=== PATIENT | male | born 1960 ===

== ENCOUNTER 2017-07-22 14:17 | Emergency (ER) | payer MEDICARE ==
[2017-07-22 14:17] VITALS: BMI 28.7
[2017-07-22] MEDS ORDERED: Iohexol 240 (50 ml) PO STA (16:53)
[2017-07-22] MEDS ORDERED: Sodium Chloride 0.9% 1,000 ML IV STA (16:55)
[2017-07-22] MEDS ORDERED: DiphenhydrAMINE 50 mg/ml Inj IVP STA (16:55)
--- NOTE | 2017-07-22 17:02 | C.PDOC ---
History Of Present Illness 56 y/o male presents to emergency department with complaint of generalized itchiness and weakness for 2 days. Patient also reports some right knee swelling. Patient denies taking any new medications, new foods, or detergents. Denies fever, chills, nausea, vomiting, SOB, palpitations, chest pain, or other associated symptoms. Time Seen by Provider: 07/22/17 16:19 Chief Complaint (Nursing): Dizziness/Lightheaded History Per: Patient History/Exam Limitations: no limitations Onset/Duration Of Symptoms: Days Current Symptoms Are (Timing): Still Present Seizure Or Post-ictal Symptoms: None Possible Causative Factor(s): denies: New Medications Fall Associated With With Symptoms: No Recent travel outside of the [place]: No Past Medical History Reviewed: Historical Data, Nursing Documentation, Vital Signs Vital Signs: Last Vital Signs Temp 97.9 F 07/22/17 18:52 Pulse 70 07/22/17 18:52 Resp 20 07/22/17 18:52 BP 150/88 07/22/17 18:52 Pulse Ox 98 07/22/17 18:52 - Medical History PMH: Fractures (left 5th toe), HTN, Peripheral Edema - [facility] Procedures COLONOSCOPY (04/20/13) Family History: States: Unknown Family Hx - Social History Hx Tobacco Use: No Hx Alcohol Use: No Hx Substance Use: No - Immunization History Hx Tetanus Toxoid Vaccination: No Hx Influenza Vaccination: Yes Hx Pneumococcal Vaccination: Yes Review Of Systems Except As Marked, All Systems Reviewed And Found Negative. Constitutional: Positive for: Weakness. Negative for: Fever, Chills Cardiovascular: Negative for: Chest Pain, Palpitations Respiratory: Negative for: Cough Gastrointestinal: Negative for: Nausea, Vomiting Skin: Positive for: Rash Neurological: Negative for: Headache, Dizziness Physical Exam - Physical Exam Appears: Non-toxic, No Acute Distress Skin: Warm, Dry, No Rash, Other ( urticaria, some diffuse skin discoloration to torso - chronic in appearance) Head: Atraumatic, Normacephalic Eye(s): bilateral: Normal Inspection, PERRL, EOMI Oral Mucosa: Moist Neck: Normal ROM, Supple Chest: Symmetrical, No Tenderness Cardiovascular: Rhythm Regular, No Murmur Respiratory: Normal Breath Sounds, No Rales, No Rhonchi, No Wheezing Gastrointestinal/Abdominal: Soft, Tenderness (epigastric and left sided abdomen) , Guarding, No Rebound, Other (post-op scar to left flank) Back: Normal Inspection Extremity: Normal ROM, Capillary Refill (< 2 sec. ) Neurological/Psych: Oriented x3, Normal Speech, Normal Cognition ED Course And Treatment - Laboratory Results Result Diagrams: 07/22/17 17:08 07/22/17 17:08 O2 Sat by Pulse Oximetry: 98 (RA) Pulse Ox Interpretation: Normal - CT Scan/US CT ABDOMEN/PELVIS Other Rad Studies (CT/US): Read By Radiologist, Radiology Report Reviewed CT/US Interpretation: Accession No. : [id number]. Patient Name / ID : EMILY CORTEZ / [id number]. Exam Date : 07/22/2017 17:32:29 ( Approved ) . Study Comment : Sex / Age : M / 56Y. Creator : Oly Taylor MD. Dictator : Oly Taylor MD. Utility Worker [place] : Property Adjuster : Oly Taylor MD. Approver2 : Report Date : 07/22/2017 18:08:33. My Comment : . PROCEDURE: CT Abdomen and Pelvis without Oral or IV contrast. HISTORY: Pain. COMPARISON: None available. TECHNIQUE: Contiguous axial images of the abdomen and pelvis. No oral or IV contrast administered. Coronal and Sagittal reformats generated and reviewed. Radiation dose: Total exam DLP = 613.42 mGy- cm. This CT exam was performed using one or more of the following dose reduction techniques: Automated exposure control, adjustment of the mA and/or kV according to patient size, and/or use of iterative reconstruction technique. FINDINGS: There is limited evaluation of the solid organs without the administration of IV contrast. LOWER THORAX: No visible consolidation, pleural effusion, or pneumothorax. LIVER: Unremarkable unenhanced appearance. GALLBLADDER AND BILE DUCTS: Unremarkable unenhanced appearance. PANCREAS: Unremarkable unenhanced appearance. SPLEEN: Unremarkable unenhanced appearance. ADRENALS: Unremarkable unenhanced appearance. KIDNEYS AND URETERS : Mild bilateral renal atrophy. No hydronephrosis or obstructing renal calculus. BLADDER: The urinary bladder appears unremarkable. REPRODUCTIVE: Unremarkable. APPENDIX: The appendix appears within normal limits of caliber. No secondary signs of acute appendicitis. BOWEL: The stomach is nondistended. Lack of oral contrast limits evaluation for bowel pathology. The bowel loops appear within normal limits of caliber without evidence of intestinal obstruction. PERITONEUM: No significant free fluid. No definite free air. LYMPH NODES: No bulky lymphadenopathy identified. VASCULATURE: Large focal out pouching or aneurysm of the thoracic aorta near the diaphragmatic hiatus measures approximately 5.7 x 5.4 x 5.3 cm. BONES: Degenerative changes of the spine. OTHER FINDINGS: Small fat containing bilateral inguinal hernias. IMPRESSION: Large focal out pouching or aneurysm of the thoracic aorta near the diaphragmatic hiatus measures approximately 5.7 x 5.4 x 5.3 cm. No prior study available for comparison. Recommend further evaluation of the aorta without and with IV contrast if indicated. Progress Note: CT abdomen/pelvis, EKG, bloodwork, CxR, R knee x-rays ordered. Treated with Benadryl, Pepcid, Solu-Medrol, IVFs. CT abdomen with contrast ordered, but was changed to non contrast study secondary to allergic reaction patient is currently having. CT was reviewed, significant for "Large focal out pouching or aneurysm of the thoracic aorta near the diaphragmatic hiatus". Discussed findings with Dr. Garcia at 18:[address] Goodman ( [place]othoracic at [facility] [place] Dr. Goodman was paged. Discussed case with Dr. Avelar at 18:40, who requests transfer to [facility] [place]. Disposition - Disposition Disposition: Trans to Other Acute Care Hosp Disposition Time: 19:00 Condition: SERIOUS Forms: [facility] (Cuban) - Clinical Impression Clinical Impression: Allergic urticaria, AAA (abdominal aortic aneurysm) without rupture - PA / [employer] OFFICER / Resident Statement MD/DO has reviewed & agrees with the documentation as recorded. - Scribe Statement The provider has reviewed the documentation as recorded by the Anetaibmelinda Georges All medical record entries made by the Scribmelinda were at my direction and personally dictated by me. I have reviewed the chart and agree that the record accurately reflects my personal performance of the history, physical exam, medical decision making, and the department course for this patient. I have also personally directed, reviewed, and agree with the discharge instructions and disposition.
[2017-07-22] MEDS ORDERED: Iohexol 240 (50 ml) ONE (17:09)
[2017-07-22] MEDS ORDERED: DiphenhydrAMINE 50 mg/ml Inj ONE (17:09)
[2017-07-22] MEDS ORDERED: Sodium Chloride 0.9% 1,000 ML ONE (17:10)
[2017-07-22 17:27] LABS: INR 1.1
[2017-07-22 17:28] LABS: BASO % 0.5 % (0.0-2.0); EOS # 0.5 K/uL (0.0-0.7); EOS % 10.9 % (0.0-4.0); HEMATOCRIT 41.2 % (35.0-51.0); LYMPH # 0.7 K/uL (1.0-4.3); LYMPH % 16.3 % (20.0-40.0); MEAN CORPUSCULAR HEMOGLOBIN 31.6 pg (27.0-31.0); MEAN CORPUSCULAR HGB CONC 34.1 g/dL (33.0-37.0); MEAN PLATELET VOLUME 9.2 fL (7.2-11.7); MONO # 0.5 K/uL (0.0-0.8); NRBC % 0.7 % (0.0-2.0); RED CELL DISTRIBUTION WIDTH 14.2 % (11.5-14.5); WHITE BLOOD COUNT 4.6 K/uL (4.8-10.8)
[2017-07-22 17:30] LABS: MEAN CELL VOLUME 92.7 fL (80.0-94.0)
[2017-07-22 17:34] LABS: CHLORIDE 99 mmol/L (98-107); POTASSIUM 4.4 mmol/L (3.6-5.2); SODIUM 133 mmol/L (132-148)
[2017-07-22 17:36] LABS: AMYLASE 75 U/L (30-110); BILIRUBIN,TOTAL 1.1 mg/dL (0.2-1.3); CARBON DIOXIDE 23 mmol/L (22-30); GFR AFRICAN-AMERICAN 19
[2017-07-22 17:37] LABS: ALB/GLOB RATIO 1.2 (1.0-2.1); ALKALINE PHOSPHATASE 69 U/L (38-126); ALT/SGPT 30 U/L (21-72); AST/SGOT 40 U/L (17-59); BLOOD UREA NITROGEN 51 mg/dL (9-20); CALCIUM 8.7 mg/dl (8.6-10.4); GLUCOSE,RANDOM 78 mg/dL (75-110); TOTAL PROTEIN 7.4 g/dL (6.3-8.3)
--- NOTE | 2017-07-22 18:09 | CT ---
PROCEDURE: CT Abdomen and Pelvis without Oral or IV contrast. HISTORY: Pain COMPARISON: None available. TECHNIQUE: Contiguous axial images of the abdomen and pelvis. No oral or IV contrast administered. Coronal and Sagittal reformats generated and reviewed. Radiation dose: Total exam DLP = 613.42 mGy-cm. This CT exam was performed using one or more of the following dose reduction techniques: Automated exposure control, adjustment of the mA and/or kV according to patient size, and/or use of iterative reconstruction technique. FINDINGS: There is limited evaluation of the solid organs without the administration of IV contrast. LOWER THORAX: No visible consolidation, pleural effusion, or pneumothorax. LIVER: Unremarkable unenhanced appearance. GALLBLADDER AND BILE DUCTS: Unremarkable unenhanced appearance. PANCREAS: Unremarkable unenhanced appearance. SPLEEN: Unremarkable unenhanced appearance. ADRENALS: Unremarkable unenhanced appearance. KIDNEYS AND URETERS: Mild bilateral renal atrophy. No hydronephrosis or obstructing renal calculus. BLADDER: The urinary bladder appears unremarkable. REPRODUCTIVE: Unremarkable. APPENDIX: The appendix appears within normal limits of caliber. No secondary signs of acute appendicitis. BOWEL: The stomach is nondistended. Lack of oral contrast limits evaluation for bowel pathology. The bowel loops appear within normal limits of caliber without evidence of intestinal obstruction. PERITONEUM: No significant free fluid. No definite free air. LYMPH NODES: No bulky lymphadenopathy identified. VASCULATURE: Large focal out pouching or aneurysm of the thoracic aorta near the diaphragmatic hiatus measures approximately 5.7 x 5.4 x 5.3 cm. BONES: Degenerative changes of the spine. OTHER FINDINGS: Small fat containing bilateral inguinal hernias. IMPRESSION: Large focal out pouching or aneurysm of the thoracic aorta near the diaphragmatic hiatus measures approximately 5.7 x 5.4 x 5.3 cm. No prior study available for comparison. Recommend further evaluation of the aorta without and with IV contrast if indicated.
[2017-07-22 18:20] VITALS: O2SAT 98
--- NOTE | 2017-07-22 18:45 | RAD ---
PROCEDURE: Right Knee Radiographs. HISTORY: COMPARISON: None available. FINDINGS: BONES: No acute displaced fracture. Degenerative changes including tenting of the intercondylar notch and osteophyte formation. JOINTS: No dislocation. Patellofemoral and medial compartment joint space narrowing. JOINT EFFUSION: No significant joint effusion. OTHER FINDINGS: None. IMPRESSION: Degenerative changes.
--- NOTE | 2017-07-22 18:48 | RAD ---
HISTORY: abd pain COMPARISON: None available. TECHNIQUE: Chest, one view. FINDINGS: Limited by patient obliquity. LUNGS: Biapical pleural thickening. Subtle increased lucency within the left upper lobe of unclear significance. No focal consolidation. Please note that chest x-ray has limited sensitivity for the detection of pulmonary masses. PLEURA: No significant pleural effusion identified. No definite pneumothorax . CARDIOVASCULAR: Heart size appears mildly enlarged. Marked enlargement of the mediastinum with evidence of a ectatic or possibly aneurysmal aorta. OSSEOUS STRUCTURES: Degenerative changes. VISUALIZED UPPER ABDOMEN: Eventration of the right hemidiaphragm. OTHER FINDINGS: Surgical clips project over the left upper quadrant. IMPRESSION: Marked enlargement of the mediastinum with evidence of a ectatic or possibly aneurysmal aorta. No comparison available. Suggest CTA for further evaluation. Subtle increased lucency within the left upper lobe of unclear significance. Degenerative changes of the spine.
[2017-07-22 18:53] VITALS: PULSE 70; RESP 20; TEMP 97.9
[2017-07-22 18:59] VITALS: BP 139/83
[2017-07-22 20:13] LABS: URINE BILIRUBIN NEGATIVE (NEGATIVE); URINE COLOR Colorless (YELLOW); URINE GLUCOSE (UA) NORMAL (Normal); URINE KETONE NEGATIVE (NEGATIVE); URINE LEUKOCYTE ESTERASE NEG Leu/uL (Negative); URINE PROTEIN 1+ mg/dL (NEGATIVE); URINE UROBILINOGEN NORMAL mg/dL (0.2-1.0)
[2017-07-22 20:14] LABS: URINE BLOOD NEGATIVE (NEGATIVE)
--- NOTE | 2017-07-24 22:50 | CARD ---
APPROVED REPORT EKG Measurement Heart [id number] ME [id number] <Conclusion> Normal sinus rhythm Voltage criteria for left ventricular hypertrophy Abnormal ECG
== END 2017-07-22 19:44 | disposition short-term general hospital (02) ==
LOC: C.ER 14:17
DX: L50.0 Allergic urticaria (principal); I71.4 Abdominal aortic aneurysm, without rupture
CPT/HCPCS: 71010; 73562; 74176; 80053; 81001; 82150; 82550; 82553; 82948; 83690; 84484; 85025; 85610; 85730; 93005; 96361; 96374; 96375; 99285; J1200; J2930; J7040

== ENCOUNTER 2018-08-19 11:29 | Inpatient (IN) | payer MEDICARE, OTHER ==
[2018-08-19 11:37] VITALS: BMI 28.2
[2018-08-19 12:55] LABS: BASO % 0.7 % (0.0-2.0); EOS # 0.2 K/uL (0.0-0.7); EOS % 3.9 % (0.0-4.0); LYMPH # 1.3 K/uL (1.0-4.3); MEAN CELL VOLUME 91.3 fL (80.0-94.0); MEAN CORPUSCULAR HEMOGLOBIN 31.8 pg (27.0-31.0); MEAN CORPUSCULAR HGB CONC 34.9 g/dL (33.0-37.0); MEAN PLATELET VOLUME 7.6 fL (7.2-11.7); MONO # 0.6 K/uL (0.0-0.8); MONO % 11.4 % (0.0-10.0); NEUT # 3.4 K/uL (1.8-7.0); NRBC % 0.1 % (0.0-2.0); RBC 4.07 Mil/uL (4.40-5.90); RED CELL DISTRIBUTION WIDTH 13.4 % (11.5-14.5); WHITE BLOOD COUNT 5.6 K/uL (4.8-10.8)
--- NOTE | 2018-08-19 12:57 | C.PDOC ---
History Of Present Illness Patient presents to ED c/o diffuse headache, lightheadedness for approx 3 days. He has h/o HTN, currently on multiple BP meds which he states he is compliant with. He has not tried any medication for pain, states he thought symptoms were due to his BP (did not check at home). Patient denies visual changes, facial droop, slurred speech, extremity weakness, sensory changes, chest pain, palpitations, SOB. Time Seen by Provider: 08/19/18 11:37 History Per: Patient History/Exam Limitations: no limitations Onset/Duration Of Symptoms: Days (3) Current Symptoms Are (Timing): Still Present Severity: Mild Past Medical History Reviewed: Historical Data, Nursing Documentation, Vital Signs Vital Signs: Last Vital Signs Temp 98.7 F 08/19/18 11:54 Pulse 73 08/19/18 11:54 Resp 16 08/19/18 11:54 BP 135/86 08/19/18 11:54 Pulse Ox 97 08/19/18 11:54 - Medical History PMH: Fractures (left 5th toe), HTN, Peripheral Edema Denies: Chronic Kidney Disease - [facility] Procedures COLONOSCOPY (04/20/13) Family History: States: No Known Family Hx - Social History Hx Tobacco Use: No Hx Alcohol Use: No Hx Substance Use: No - Immunization History Hx Tetanus Toxoid Vaccination: No Hx Influenza Vaccination: No Hx Pneumococcal Vaccination: No Review Of Systems Constitutional: Negative for: Fever, Chills Cardiovascular: Negative for: Chest Pain, Palpitations Respiratory: Negative for: Cough, Shortness of Breath Gastrointestinal: Negative for: Nausea, Vomiting, Abdominal Pain Neurological: Positive for: Headache, Dizziness. Negative for: Weakness, Numbness, Incoordination, Confusion, Seizures, Altered Mental Status Physical Exam - Physical Exam Appears: Well, Non-toxic, No Acute Distress Head: Atraumatic, Normacephalic Eye(s): bilateral: Normal Inspection, PERRL, EOMI Oral Mucosa: Moist Cardiovascular: Rhythm Regular Respiratory: Normal Breath Sounds, No Rales, No Rhonchi, No Wheezing Gastrointestinal/Abdominal: Normal Exam, Bowel Sounds, Soft, No Tenderness Extremity: Normal ROM, No Pedal Edema, No Calf Tenderness Neurological/Psych: Oriented x3, Normal Speech, Normal Cognition, Normal Cranial Nerves, No Cerebellar Signs, Normal Motor, Normal Sensation ED Course And Treatment - Laboratory Results Result Diagrams: 08/19/18 12:44 O2 Sat by Pulse Oximetry: 97 (RA) Pulse Ox Interpretation: Normal Progress Note: During my exam, patient began to c/o left sided chest pain - repeat EKG ordered and showed NSR 70 bom, left axis deviation, no acute ST/T wave changes. Chest pain became more severe, serial EKGs done not showing any ischemic changes. - Physician Consult Information Physician Contacted: Kezia Garcia Outcome Of Conversation: Discussed patient with PMD, he agrees with admission for chest pain, hypertension. Will not do dissection study at this time due to elevated Bun/Cr, CXR without widened mediastinum. Patient needs to start dialysis. Dr. Garcia would like Dr. Joseph for neprho and Dr. Meyer for vascular.
[2018-08-19 13:06] LABS: PROTHROMBIN TIME 11.1 SECONDS (9.7-12.2)
--- NOTE | 2018-08-19 13:31 | RAD ---
HISTORY: CP COMPARISON: Chest x-ray performed 07/22/17 TECHNIQUE: Chest, one view. FINDINGS: External wires and leads obscure evaluation of the underlying parenchyma. Loop recorder seen projecting over the left heart shadow. Examination limited by habitus and hypoinflation. LUNGS: Increased lucency of the left upper lobe. No focal consolidation. Please note that chest x-ray has limited sensitivity for the detection of pulmonary masses. PLEURA: No significant pleural effusion identified. No definite pneumothorax . CARDIOVASCULAR: Heart size appears within normal limits. Enlargement of the mediastinum as on prior study. No significant atherosclerotic calcification present. OSSEOUS STRUCTURES: Degenerative changes. VISUALIZED UPPER ABDOMEN: Unremarkable. OTHER FINDINGS: None. IMPRESSION: Again seen is enlargement of the mediastinum of unclear etiology, possibly related to ectatic or aneurysmal aorta. If indicated, CT with IV contrast of the chest may be considered. Increased lucency involving the left upper lobe.
[2018-08-19 13:35] LABS: ALB/GLOB RATIO 1.4 (1.0-2.1); ALBUMIN 4.3 g/dL (3.5-5.0); ALT/SGPT 21 U/L (21-72); AST/SGOT 24 U/L (17-59); BLOOD UREA NITROGEN 52 mg/dL (9-20); CALCIUM 9.3 mg/dl (8.6-10.4); GFR NON-AFRICAN AMERICAN 10
[2018-08-19 13:44] LABS: CK-MB 0.83 ng/mL (0.0-3.38)
--- NOTE | 2018-08-19 14:23 | CP.PCM.CON ---
History of Present Illness - History of Present Illness History of Present Illness: 57 yo male with pmh/o hypertension, ckd-4 s/p graft about 8-10 yrs ago for aneurysmal rupture, chronic smoker was admitted with cc/o mild sob for log time. pt was admitted for worsening renal function with s.cr 4.9 in june 2018. pt denies any cp, palpiattaion, no nausea, no vomitings, no abdominal pain, no edema , no urinary sx. renal consult is requested for evaluation of ckd-5, no skin rash, no recent weight loss or gain Review of Systems - Review of Systems All systems: reviewed and no additional remarkable complaints except Review of Systems: mild sob - Constitutional Constitutional: As Per HPI - EENT Eyes: As Per HPI Ears: As Per HPI Nose/Mouth/Throat: As Per HPI - Cardiovascular Cardiovascular: As Per HPI - Respiratory Respiratory: As Per HPI - Gastrointestinal Gastrointestinal: As Per HPI - Genitourinary Genitourinary: As Per HPI - Musculoskeletal Musculoskeletal: As Per HPI - Integumentary Integumentary: As Per HPI - Neurological Neurological: As Per HPI - Psychiatric Psychiatric: As Per HPI - Endocrine Endocrine: As Per HPI - Hematologic/Lymphatic Hematologic: As Per HPI Past Patient History - Past Medical History & Family History Past Medical History?: Yes - Past Social History Smoking Status: Light Smoker < 10 Cigarettes Daily - CARDIAC Hx Hypertension: Yes - PULMONARY Hx Respiratory Disorders: No - NEUROLOGICAL Hx Neurological Disorder: Yes (neuropathy) Hx Dizziness: Yes - HEENT Hx HEENT Problems: Yes (seasonal allergies) - RENAL Hx Chronic Kidney Disease: Yes - ENDOCRINE/METABOLIC Hx Endocrine Disorders: No - HEMATOLOGICAL/ONCOLOGICAL Hx Blood Disorders: No - INTEGUMENTARY Hx Dermatological Problems: No - MUSCULOSKELETAL/RHEUMATOLOGICAL Hx Fractures: Yes (left 5th toe) - GASTROINTESTINAL Hx Gastrointestinal Disorders: No - GENITOURINARY/GYNECOLOGICAL Hx Genitourinary Disorders: No - PSYCHIATRIC Hx Substance Use: No - SURGICAL HISTORY Hx Surgeries: Yes Hx Abdominal Aortic Aneurysm Repair: Yes (10 years ago ) Hx Open Reduction Internal Fixation: Yes (left foot 5th toe) - ANESTHESIA Hx Anesthesia: Yes Hx Anesthesia Reactions: No Hx Malignant Hyperthermia: No Meds Allergies/Adverse Reactions: Allergies Allergy/AdvReac Type Severity Reaction Status Date / Time No Known Allergies Allergy Verified 08/19/18 11:36 Physical Exam - Constitutional Appears: Non-toxic, No Acute Distress - Head Exam Head Exam: ATRAUMATIC, NORMAL INSPECTION, NORMOCEPHALIC - Eye Exam Eye Exam: EOMI, Normal appearance, PERRL Pupil Exam: NORMAL ACCOMODATION - ENT Exam ENT Exam: Mucous Membranes Moist - Neck Exam Neck exam: Positive for: Full Rom, Normal Inspection - Respiratory Exam Respiratory Exam: Clear to Auscultation Bilateral, NORMAL BREATHING PATTERN - Cardiovascular Exam Cardiovascular Exam: REGULAR RHYTHM, +S1, +S2 - GI/Abdominal Exam GI & Abdominal Exam: Normal Bowel Sounds, Soft - Rectal Exam Rectal Exam: Deferred - Extremities Exam Additional comments: no edema - Neurological Exam Neurological exam: Alert, CN II-XII Intact, Normal Gait, Oriented x3 - Psychiatric Exam Psychiatric exam: Normal Affect - Skin Skin Exam: Dry, Normal Color, Warm Results - Vital Signs Recent Vital Signs: Last Vital Signs Temp 98.7 F 08/19/18 11:54 Pulse 62 08/19/18 13:43 Resp 12 08/19/18 13:43 BP 144/89 08/19/18 13:43 Pulse Ox 100 08/19/18 13:43 - Labs Result Diagrams: 08/19/18 12:44 08/19/18 12:44 Labs: Laboratory Results - last 24 hr 08/19/18 08/19/18 08/19/18 12:44 12:44 12:44 WBC 5.6 RBC 4.07 L Hgb 13.0 Hct 37.2 MCV 91.3 MCH 31.8 H MCHC 34.9 RDW 13.4 Plt Count 206 MPV 7.6 Neut % (Auto) 60.0 Lymph % (Auto) 24.0 Gillespie % (Auto) 11.4 H Eos % (Auto) 3.9 Baso % (Auto) 0.7 Neut # (Auto) 3.4 Lymph # (Auto) 1.3 Gillespie # (Auto) 0.6 Eos # (Auto) 0.2 Baso # (Auto) 0.0 PT 11.1 INR 1.0 APTT 36 H Sodium 141 Potassium 4.3 Chloride 108 H Carbon Dioxide 22 Anion Gap 16 BUN 52 H Creatinine 5.7 H Est GFR ( Amer) 13 Est GFR (Non-Af Amer) 10 Random Glucose 104 Calcium 9.3 Total Bilirubin 0.6 AST 24 ALT 21 D Alkaline Phosphatase 97 Total Creatine Kinase 187 H CK-MB (Mass) 0.83 Troponin I < 0.0120 Total Protein 7.2 Albumin 4.3 Globulin 2.9 Albumin/Globulin Ratio 1.4 Assessment & Plan - Assessment and Plan (Free Text) Assessment: 57 yo male with pmh/o hypertension, ckd-4, aortic grafting was admitted with worsening renal function and mild sob 1. ACKD-5, most likely sec to HTN nephrosclerosis 2. HTN 3. widening of mediastinium 4. s/p Aortic grafting vascular surgery consult for AV fistula placement vein mapping check himanshu,c3,c4, hept.b, c serology, u/a, 24 hr urine protein, creatinine, cr. cl for AV fistula plcement check pth, po4 level no need for emergency hd d/w pt and his at bed side regarding the need for HD access and agreed for the plan Plan: As above
--- NOTE | 2018-08-19 15:06 | CP.PCM.CON ---
History of Present Illness - History of Present Illness History of Present Illness: Vascular Surgery: Dr. Meyer 57 y/o M with a PMHx of HTN, abdominal aortic aneurysm repair & chronic kidney disease who presents to with complaints of headache, dizziness, and weakness, onset 3 Days ago. He states that he is persistently dizzy, but that it became worse over the past 3 days. He has not tried anything to relieve his symptoms and states that nothing makes it worse. Denies fevers, chills,chest pain, shortness of breath, nausea, vomit, diarrhea, abdominal pain, back pain, vision changes,facial droop, slurred speech. As per, pt's PMD's request vascular surgery has been consulted to evaluate for AVF creation. Pt is currently asymptomatic with no electrolyte disturbances and Cr of 5.7, therefore emergent HD is not needed, however he will eventually require dialysis. PMHx: HTN, Aortic aneurysm/dissection s/p repair, chronic kidney disease repair PSHx: Abdominal aortic aneurysm repair FamHx: Father-Cancer, Mother-Unknown Social Hx: Smoker 30 pack yr, denies EtOH, Cocaine Abuse in the Past, Lives at [facility] with , Unemployed Review of Systems - Review of Systems All systems: reviewed and no additional remarkable complaints except (as per HPI) Past Patient History - Past Medical History & Family History Past Medical History?: Yes - Past Social History Smoking Status: Light Smoker < 10 Cigarettes Daily - CARDIAC Hx Hypertension: Yes Hx Peripheral Edema: Yes - PULMONARY Hx Respiratory Disorders: No - NEUROLOGICAL Hx Neurological Disorder: Yes (neuropathy) Hx Dizziness: Yes - HEENT Hx HEENT Problems: Yes (seasonal allergies) - RENAL Hx Chronic Kidney Disease: No - ENDOCRINE/METABOLIC Hx Endocrine Disorders: No - HEMATOLOGICAL/ONCOLOGICAL Hx Blood Disorders: No - INTEGUMENTARY Hx Dermatological Problems: No - MUSCULOSKELETAL/RHEUMATOLOGICAL Hx Fractures: Yes (left 5th toe) - GASTROINTESTINAL Hx Gastrointestinal Disorders: No - GENITOURINARY/GYNECOLOGICAL Hx Genitourinary Disorders: No - PSYCHIATRIC Hx Substance Use: No - SURGICAL HISTORY Hx Surgeries: Yes Hx Abdominal Aortic Aneurysm Repair: Yes (10 years ago ) Hx Open Reduction Internal Fixation: Yes (left foot 5th toe) - ANESTHESIA Hx Anesthesia: Yes Hx Anesthesia Reactions: No Hx Malignant Hyperthermia: No Meds Allergies/Adverse Reactions: Allergies Allergy/AdvReac Type Severity Reaction Status Date / Time No Known Allergies Allergy Verified 08/19/18 11:36 Physical Exam - Constitutional Appears: Well, No Acute Distress - Head Exam Head Exam: ATRAUMATIC, NORMOCEPHALIC - ENT Exam ENT Exam: Mucous Membranes Moist - Respiratory Exam Respiratory Exam: NORMAL BREATHING PATTERN - Cardiovascular Exam Cardiovascular Exam: RRR - GI/Abdominal Exam GI & Abdominal Exam: Soft. absent: Distended Additional comments: aortic aneurysm repair incision on Left - Extremities Exam Extremities exam: Negative for: calf tenderness - Neurological Exam Neurological exam: Alert, Oriented x3 - Skin Skin Exam: Dry, Warm Results - Vital Signs Recent Vital Signs: Last Vital Signs Temp 97.6 F 08/19/18 14:24 Pulse 63 08/19/18 14:24 Resp 18 08/19/18 14:24 BP 161/97 H 08/19/18 14:24 Pulse Ox 100 08/19/18 14:24 - Labs Result Diagrams: 08/19/18 12:44 08/19/18 12:44 Labs: Laboratory Results - last 24 hr 08/19/18 08/19/18 08/19/18 12:44 12:44 12:44 WBC 5.6 RBC 4.07 L Hgb 13.0 Hct 37.2 MCV 91.3 MCH 31.8 H MCHC 34.9 RDW 13.4 Plt Count 206 MPV 7.6 Neut % (Auto) 60.0 Lymph % (Auto) 24.0 Hudson % (Auto) 11.4 H Eos % (Auto) 3.9 Baso % (Auto) 0.7 Neut # (Auto) 3.4 Lymph # (Auto) 1.3 Hudson # (Auto) 0.6 Eos # (Auto) 0.2 Baso # (Auto) 0.0 PT 11.1 INR 1.0 APTT 36 H Sodium 141 Potassium 4.3 Chloride 108 H Carbon Dioxide 22 Anion Gap 16 BUN 52 H Creatinine 5.7 H Est GFR ( Amer) 13 Est GFR (Non-Af Amer) 10 Random Glucose 104 Calcium 9.3 Total Bilirubin 0.6 AST 24 ALT 21 D Alkaline Phosphatase 97 Total Creatine Kinase 187 H CK-MB (Mass) 0.83 Troponin I < 0.0120 Total Protein 7.2 Albumin 4.3 Globulin 2.9 Albumin/Globulin Ratio 1.4 Assessment & Plan - Assessment and Plan (Free Text) Assessment: 57M with chronic kidney disease; eval for AVF Plan: - vein mapping - Left arm precautions - will plan for AVF /Saturday this week - d/w Dr. Mitch Love
[2018-08-19 15:33] LABS: COMPLEMENT C4 32.8 mg/dL (14.0-44.0)
--- NOTE | 2018-08-19 15:38 | US ---
Date of service: 08/19/2018 PROCEDURE: Ultrasound of the Kidneys HISTORY: ckd for kidney size COMPARISON: None available. TECHNIQUE: Sonogram of the kidneys. FINDINGS: RIGHT KIDNEY: Measures: 10.3 cm. Diffusely increased cortical echogenicity and diffuse cortical thinning. Consistent with chronic kidney disease. Mid to lower pole simple cortical cyst, 5 x 7 x 8 mm. No other mass. No calculus or hydronephrosis. LEFT KIDNEY: Measures: 9.3 cm. Diffusely increased cortical echogenicity and diffuse cortical thinning. Consistent with chronic kidney disease. No stone, solid mass lesion or hydronephrosis visualized. OTHER FINDINGS: None. IMPRESSION: The diffusely echogenic kidneys with cortical thinning consistent with chronic kidney disease. Incidental 8 mm mid right renal cortical cyst.
[2018-08-19 15:53] LABS: HEPATITIS B SURFACE AG Negative (NEGATIVE)
[2018-08-19 15:59] LABS: HEPATITIS A IGM NEGATIVE (NEGATIVE); HEPATITIS B CORE AB NEGATIVE (NEGATIVE)
[2018-08-19 16:10] LABS: HEPATITIS C ANTIBODY NEGATIVE (NEGATIVE)
[2018-08-19 23:11] LABS: URINE BILIRUBIN NEGATIVE (NEGATIVE); URINE BLOOD NEGATIVE (NEGATIVE); URINE CLARITY Clear (Clear); URINE COLOR Yellow (YELLOW); URINE GLUCOSE (UA) NORMAL (Normal); URINE LEUKOCYTE ESTERASE NEG Leu/uL (Negative); URINE PROTEIN 2+ mg/dL (NEGATIVE); URINE UROBILINOGEN NORMAL mg/dL (0.2-1.0)
[2018-08-20] MEDS ORDERED: Enoxaparin 40 mg Syringe SC SCH (10:00)
[2018-08-20] MEDS ORDERED: Pneumococcal 23-Valent Vaccine IM ONE (10:00)
[2018-08-20] MEDS ORDERED: RANEXA PO SCH (10:15)
[2018-08-20] MEDS ORDERED: CLONIDINE PO SCH (10:15)
--- NOTE | 2018-08-20 11:13 | CP.PCM.PN ---
Subjective - Date & Time of Evaluation Date of Evaluation: 08/20/18 Time of Evaluation: 10:40 - Subjective Subjective: pt is feeling better, no cp, no sob, no nausea, no vomitings pt is for av fistula placement in am Objective - Vital Signs/Intake and Output Vital Signs (last 24 hours): Temp Pulse Resp BP Pulse Ox 97.8 F 72 20 162/95 H 99 08/20/18 08:12 08/20/18 08:36 08/20/18 08:12 08/20/18 08:12 08/20/18 08:12 - Medications Medications: Current Medications Heparin Sodium (Porcine) (Heparin) 5,000 units SC Q12 [facility] Influenza Virus Vaccine (Fluzone Quad [id number]) 60 mcg IM .ONCE ONE Stop: 08/21/18 10:01 - Labs Labs: 08/19/18 12:44 08/19/18 12:44 PT 11.1 SECONDS (9.7-12.2) 08/19/18 12:44 INR 1.0 08/19/18 12:44 APTT 36 SECONDS (21-34) H 08/19/18 12:44 - Constitutional Appears: Well, Non-toxic, No Acute Distress - Head Exam Head Exam: ATRAUMATIC - Eye Exam Eye Exam: EOMI, Normal appearance, PERRL Pupil Exam: NORMAL ACCOMODATION - ENT Exam ENT Exam: Mucous Membranes Moist - Neck Exam Neck Exam: Full ROM - Respiratory Exam Respiratory Exam: Clear to Ausculation Bilateral, NORMAL BREATHING PATTERN - Cardiovascular Exam Cardiovascular Exam: REGULAR RHYTHM, +S1, +S2 - GI/Abdominal Exam GI & Abdominal Exam: Soft, Normal Bowel Sounds - Rectal Exam Rectal Exam: Deferred - Extremities Exam Additional comments: no edema of legs - Neurological Exam Neurological Exam: Alert, Awake, CN II-XII Intact, Normal Gait, Oriented x3 - Psychiatric Exam Psychiatric exam: Normal Mood - Skin Skin Exam: Intact, Normal Color, Warm Assessment and Plan - Assessment and Plan (Free Text) Assessment: 57 yo male with pmh/o hypertension, ckd-4, aortic grafting was admitted with worsening renal function and mild sob 1. CKD-5, most likely sec to HTN nephrosclerosis, can't r/o chronic GN 2. HTN 3. widening of mediastinium 4. s/p Aortic grafting 5. Nephrotic range proteinuria for AV fistula placement vein mapping c3,c4, hept.b, c serology are wnl check pth, po4 level, ADI, uPEP, SPEP no need for emergency hd
[2018-08-20] MEDS: Ranolazine 500 mg Extended Release Tablets PO SCH (12:25)
--- NOTE | 2018-08-20 13:17 | CP.PCM.PN ---
Subjective - Date & Time of Evaluation Date of Evaluation: 08/20/18 Time of Evaluation: 13:15 - Subjective Subjective: Vascular Surgery: Dr. Meyer Pt seen and examined. No acute overnight events. Pt states he feels better today and denies complaints at this time. Denies fevers/chills, chest pain or SOB. Objective - Vital Signs/Intake and Output Vital Signs (last 24 hours): Temp Pulse Resp BP Pulse Ox 97.8 F 70 20 162/95 H 99 08/20/18 08:12 08/20/18 12:00 08/20/18 08:12 08/20/18 08:12 08/20/18 08:12 - Medications Medications: Current Medications Amlodipine Besylate (Norvasc) 10 mg PO DAILY [facility] Last Admin: 08/20/18 12:26 Dose: 10 mg Clonidine HCl (Catapres) 0.2 mg PO DAILY [facility] Last Admin: 08/20/18 12:25 Dose: 0.2 mg Heparin Sodium (Porcine) (Heparin) 5,000 units SC Q12 [facility] Last Admin: 08/20/18 12:26 Dose: 5,000 units Hydrochlorothiazide (Hydrodiuril) 25 mg PO DAILY [facility] Last Admin: 08/20/18 11:26 Dose: 25 mg Influenza Virus Vaccine (Fluzone Quad [id number]) 60 mcg IM .ONCE ONE Stop: 08/21/18 10:01 Losartan Potassium (Cozaar) 50 mg PO DAILY [facility] Last Admin: 08/20/18 12:25 Dose: 50 mg Ranolazine (Ranexa) 500 mg PO DAILY [facility] Last Admin: 08/20/18 12:25 Dose: 500 mg - Labs Labs: 08/19/18 12:44 08/19/18 12:44 PT 11.1 SECONDS (9.7-12.2) 08/19/18 12:44 INR 1.0 08/19/18 12:44 APTT 36 SECONDS (21-34) H 08/19/18 12:44 - Constitutional Appears: Well, No Acute Distress - Eye Exam Eye Exam: Normal appearance - ENT Exam ENT Exam: Mucous Membranes Moist - Respiratory Exam Respiratory Exam: NORMAL BREATHING PATTERN - Cardiovascular Exam Cardiovascular Exam: RRR - GI/Abdominal Exam GI & Abdominal Exam: Soft. absent: Distended - Neurological Exam Neurological Exam: Alert, Awake, Oriented x3 - Skin Skin Exam: Dry, Warm Assessment and Plan - Assessment and Plan (Free Text) Assessment: 57M with chronic kidney disease Plan: - plan for AVF tomorrow - keep NPO after midnight - d/w Dr. Mitch Love
--- NOTE | 2018-08-20 18:59 | CP.PCM.HP ---
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 pt was admitted for worsening renal function with s.cr 4.9 in june 2018. pt denies any cp, palpiattaion, no nausea, no vomitings, no abd ominal pain, no edema , no urinary sx. renal consult is requested for evaluation of ckd-5, no skin rash, no recent weight loss or gain Present on Admission - Present on Admission Any Indicators Present on Admission: No History of DVT/PE: No History of Uncontrolled Diabetes: No Review of Systems - Constitutional Constitutional: Anorexia, Weakness - Cardiovascular Cardiovascular: Dyspnea on Exertion. absent: Pedal Edema - Respiratory Respiratory: Dyspnea, Dyspnea on Exertion - Gastrointestinal Gastrointestinal: absent: Abdominal Pain Past Patient History - Past Medical History & Family History Past Medical History?: Yes - Past Social History Smoking Status: Light Smoker < 10 Cigarettes Daily - CARDIAC Hx Hypertension: Yes - PULMONARY Hx Respiratory Disorders: No - NEUROLOGICAL Hx Neurological Disorder: Yes (neuropathy) Hx Dizziness: Yes - HEENT Hx HEENT Problems: Yes (seasonal allergies) - RENAL Hx Chronic Kidney Disease: Yes - ENDOCRINE/METABOLIC Hx Endocrine Disorders: No - HEMATOLOGICAL/ONCOLOGICAL Hx Blood Disorders: No - INTEGUMENTARY Hx Dermatological Problems: No - MUSCULOSKELETAL/RHEUMATOLOGICAL Hx Fractures: Yes (left 5th toe) - GASTROINTESTINAL Hx Gastrointestinal Disorders: No - GENITOURINARY/GYNECOLOGICAL Hx Genitourinary Disorders: No - PSYCHIATRIC Hx Substance Use: No - SURGICAL HISTORY Hx Surgeries: Yes Hx Abdominal Aortic Aneurysm Repair: Yes (10 years ago ) Hx Open Reduction Internal Fixation: Yes (left foot 5th toe) - ANESTHESIA Hx Anesthesia: Yes Hx Anesthesia Reactions: No Hx Malignant Hyperthermia: No Meds Allergies/Adverse Reactions: Allergies Allergy/AdvReac Type Severity Reaction Status Date / Time No Known Allergies Allergy Verified 08/19/18 11:36 Physical Exam - Constitutional Appears: Non-toxic - Head Exam Head Exam: NORMAL INSPECTION - Eye Exam Eye Exam: absent: Scleral icterus - ENT Exam ENT Exam: Mucous Membranes Moist - Neck Exam Neck exam: Positive for: Full Rom - Respiratory Exam Respiratory Exam: NORMAL BREATHING PATTERN - Cardiovascular Exam Cardiovascular Exam: REGULAR RHYTHM - GI/Abdominal Exam GI & Abdominal Exam: Normal Bowel Sounds, Soft - Extremities Exam Extremities exam: Negative for: pedal edema - Neurological Exam Neurological exam: Alert, Oriented x3 Results - Vital Signs Recent Vital Signs: Last Vital Signs Temp 97.8 F 08/20/18 15:00 Pulse 65 08/20/18 16:20 Resp 20 08/20/18 15:00 BP 131/79 08/20/18 15:00 Pulse Ox 97 08/20/18 15:00 - Labs Result Diagrams: 08/19/18 12:44 08/19/18 12:44 Labs: Laboratory Results - last 24 hr 08/19/18 23:00 Urine Color Yellow Urine Clarity Clear Urine pH 6.0 Ur Specific [place] 1.011 Urine Protein 2+ H Urine Glucose (UA) Normal Urine Ketones Negative Urine Blood Negative Urine Nitrate Negative Urine Bilirubin Negative Urine Urobilinogen Normal Ur Leukocyte Esterase Neg Urine WBC (Auto) < 1 Urine RBC (Auto) 1 Assessment & Plan - Assessment and Plan (Free Text) Assessment: ESRD Prinzmetal angina HTN Hx of IVDA many years ago Plan: Renal consult w/ Dr Mota for dialysis Vascular consult with DR Meyer for AV fistula - Date & Time Date: 08/19/18 Time: 18:20
--- NOTE | 2018-08-20 19:08 | CP.PCM.PN ---
Subjective - Date & Time of Evaluation Date of Evaluation: 08/20/18 Time of Evaluation: 08:10 - Subjective Subjective: seen by renal vascular pending weak Objective - Vital Signs/Intake and Output Vital Signs (last 24 hours): Temp Pulse Resp BP Pulse Ox 97.8 F 65 20 131/79 97 08/20/18 15:00 08/20/18 16:20 08/20/18 15:00 08/20/18 15:00 08/20/18 15:00 - Medications Medications: Current Medications Amlodipine Besylate (Norvasc) 10 mg PO DAILY [facility] Last Admin: 08/20/18 12:26 Dose: 10 mg Clonidine HCl (Catapres) 0.2 mg PO DAILY [facility] Last Admin: 08/20/18 12:25 Dose: 0.2 mg Heparin Sodium (Porcine) (Heparin) 5,000 units SC Q12 [facility] Last Admin: 08/20/18 12:26 Dose: 5,000 units Hydrochlorothiazide (Hydrodiuril) 25 mg PO DAILY [facility] Last Admin: 08/20/18 11:26 Dose: 25 mg Influenza Virus Vaccine (Fluzone Quad [id number]) 60 mcg IM .ONCE ONE Stop: 08/21/18 10:01 Losartan Potassium (Cozaar) 50 mg PO DAILY [facility] Last Admin: 08/20/18 12:25 Dose: 50 mg Ranolazine (Ranexa) 500 mg PO DAILY [facility] Last Admin: 08/20/18 12:25 Dose: 500 mg - Labs Labs: 08/19/18 12:44 08/19/18 12:44 PT 11.1 SECONDS (9.7-12.2) 08/19/18 12:44 INR 1.0 08/19/18 12:44 APTT 36 SECONDS (21-34) H 08/19/18 12:44 - Constitutional Appears: Non-toxic - Head Exam Head Exam: NORMAL INSPECTION - Eye Exam Eye Exam: absent: Scleral icterus - ENT Exam ENT Exam: Mucous Membranes Moist - Neck Exam Neck Exam: Full ROM - Respiratory Exam Respiratory Exam: Clear to Ausculation Bilateral - Cardiovascular Exam Cardiovascular Exam: REGULAR RHYTHM - GI/Abdominal Exam GI & Abdominal Exam: Soft - Extremities Exam Extremities Exam: absent: Pedal Edema - Neurological Exam Neurological Exam: Alert, Oriented x3 Assessment and Plan - Assessment and Plan (Free Text) Assessment: ESRD Prinzmetal HTN Hx of IVDA in the past Plan: Cont meds dialysis as per renal
--- NOTE | 2018-08-20 19:50 | CARD ---
APPROVED REPORT Date of service: 08/19/2018 EKG Measurement Heart [id number] ID [id number] <Conclusion> Normal sinus rhythm Possible Left atrial enlargement Left ventricular hypertrophy with QRS widening Abnormal ECG
[2018-08-20 21:44] LABS: URINE CREATININE 81.7 mg/dL
[2018-08-20 21:45] LABS: URINE CREATININE 81.7 mg/dL
[2018-08-21 07:14] LABS: HEMOGLOBIN 13.6 g/dL (12.0-18.0); MEAN CELL VOLUME 90.7 fL (80.0-94.0); MEAN CORPUSCULAR HEMOGLOBIN 31.6 pg (27.0-31.0); MEAN CORPUSCULAR HGB CONC 34.8 g/dL (33.0-37.0); MEAN PLATELET VOLUME 7.8 fL (7.2-11.7); RBC 4.32 Mil/uL (4.40-5.90); RED CELL DISTRIBUTION WIDTH 13.1 % (11.5-14.5); WHITE BLOOD COUNT 4.9 K/uL (4.8-10.8)
[2018-08-21 07:27] LABS: ALB/GLOB RATIO 1.4 (1.0-2.1); ALBUMIN 4.1 g/dL (3.5-5.0); CALCIUM 8.9 mg/dl (8.6-10.4)
[2018-08-21] MEDS ORDERED: Midazolam 2 MG/2 ML VIAL ONE (07:44)
[2018-08-21] MEDS ORDERED: Propofol 10 mg/ml Inj (20 ML) ONE ×2 (07:44→08:28)
[2018-08-21] MEDS ORDERED: ceFAZolin IV 1 gm in Dextrose 2 GM/100 ML BAG IVPB ONE (07:57)
[2018-08-21] MEDS ORDERED: HEPARIN-NS 5,000 UNITS/500 ML 5,000 UNIT/500 ML BAG IV ONE (07:58)
[2018-08-21] MEDS: Ranolazine 500 mg Extended Release Tablets PO SCH (09:06)
[2018-08-21] MEDS ORDERED: Influenza Vaccine 60 MCG/0.5 ML SYR (3 yr & up) IM ONE (10:00)
--- NOTE | 2018-08-21 10:16 | PCM.SURG1 ---
Surgeon's Initial Post Op Note - Surgeon's Notes Surgeon: Dr. Meyer Supervisor Mirror Fabrication: Dr. Love PGY-3 Type of Anesthesia: General LMA Anesthesia Administered By: Glo Christian CRNA Pre-Operative Diagnosis: Chronic Kidney Disease Operative Findings: See operative report Post-Operative Diagnosis: Same Operation Performed: Creation of L arm Brachio-Basilic AVF Specimen/Specimens Removed: none Estimated Blood Loss: EBL {In ML}: 10 Blood Products Given: N/A Drains Used: No Drains Post-Op Condition: Good Date of Surgery/Procedure: 08/21/18 Time of Surgery/Procedure: 10:16
[2018-08-21] MEDS ORDERED: HYDROmorphone 0.5 mg/0.5 ml ISec IVP PRN (10:19)
[2018-08-21] MEDS ORDERED: DiphenhydrAMINE 50 mg/ml Inj IVP STA (11:28)
[2018-08-21] MEDS ORDERED: DiphenhydrAMINE 50 mg/ml Inj IVP ONE (11:45)
--- NOTE | 2018-08-21 19:59 | CP.PCM.PN ---
Subjective - Date & Time of Evaluation Date of Evaluation: 08/21/18 Time of Evaluation: 19:59 - Subjective Subjective: pt denies any sob, no cp, c/o pain at left UE av fistula site, Objective - Vital Signs/Intake and Output Vital Signs (last 24 hours): Temp Pulse Resp BP Pulse Ox 97.6 F 82 20 144/83 97 08/21/18 15:00 08/21/18 15:00 08/21/18 15:00 08/21/18 15:00 08/21/18 15:00 Intake and Output: 08/21/18 08/22/18 18:59 06:59 Intake Total 650 Balance 650 - Medications Medications: Current Medications Acetaminophen (Tylenol 325mg Tab) 650 mg PO Q6 PRN PRN Reason: Pain, moderate (4-7) Last Admin: 08/21/18 16:18 Dose: 650 mg Amlodipine Besylate (Norvasc) 10 mg PO DAILY [facility] Last Admin: 08/21/18 09:06 Dose: Not Given Clonidine HCl (Catapres) 0.2 mg PO DAILY [facility] Last Admin: 08/21/18 09:05 Dose: Not Given Heparin Sodium (Porcine) (Heparin) 5,000 units SC Q12 [facility] Last Admin: 08/21/18 09:06 Dose: Not Given Hydrochlorothiazide (Hydrodiuril) 25 mg PO DAILY [facility] Last Admin: 08/21/18 09:06 Dose: Not Given Losartan Potassium (Cozaar) 50 mg PO DAILY [facility] Last Admin: 08/21/18 09:05 Dose: Not Given Ranolazine (Ranexa) 500 mg PO DAILY [facility] Last Admin: 08/21/18 09:06 Dose: Not Given - Labs Labs: 08/21/18 06:59 08/21/18 06:59 PT 11.1 SECONDS (9.7-12.2) 08/19/18 12:44 INR 1.0 08/19/18 12:44 APTT 36 SECONDS (21-34) H 08/19/18 12:44 - Constitutional Appears: Well, Non-toxic, No Acute Distress - Head Exam Head Exam: ATRAUMATIC, NORMAL INSPECTION, NORMOCEPHALIC - Eye Exam Eye Exam: EOMI, Normal appearance, PERRL Pupil Exam: NORMAL ACCOMODATION - ENT Exam ENT Exam: Mucous Membranes Moist - Neck Exam Neck Exam: Full ROM, Normal Inspection - Respiratory Exam Respiratory Exam: Clear to Ausculation Bilateral, NORMAL BREATHING PATTERN - Cardiovascular Exam Cardiovascular Exam: REGULAR RHYTHM, +S1, +S2 - GI/Abdominal Exam GI & Abdominal Exam: Soft, Normal Bowel Sounds - Rectal Exam Rectal Exam: Deferred - Extremities Exam Additional comments: no edema, left ue is slightly cold - Neurological Exam Neurological Exam: Alert, Awake, CN II-XII Intact, Oriented x3 - Skin Skin Exam: Normal Color, Warm Assessment and Plan - Assessment and Plan (Free Text) Assessment: 57 yo male with pmh/o hypertension, ckd-4, aortic grafting was admitted with worsening renal function and mild sob 1. CKD-5, most likely sec to HTN nephrosclerosis, can't r/o chronic GN 2. HTN 3. widening of mediastinium 4. s/p Aortic grafting 5. Nephrotic range proteinuria s/p AV fistula placement this morning c3,c4, hept.b, c serology are wnl check pth, po4 level, ADI, UPEP, SPEP no need for emergency hd
--- NOTE | 2018-08-21 21:10 | OP ---
PROCEDURE DATE: 08/21/2018 PREOPERATIVE DIAGNOSIS: Renal failure. POSTOPERATIVE DIAGNOSIS: Renal failure. PROCEDURE CARRIED OUT: Basilic vein fistula, left arm. SURGEON: Dr. Jon Meyer. WRAPPER STEMMER OPERATOR: Dr. Kemi Love. ANESTHESIA ADMINISTERED BY: Glo Christian CRNA INDICATIONS: The patient is a middle aged man with renal sufficiency, soon to require dialysis. OPERATIVE FINDINGS: We were able to create a fistula between the basilic vein and the adjacent brachial artery in an end-to-side fashion; using a loupe magnification, heparin anticoagulation, and spatulated and branched anastomosis. At the completion of the procedure, there was excellent flow to the fistula; and there was a palpable pulse at the wrist. On the preoperative ultrasound examination, there was no adequate cephalic vein or surface vein with which we could do a fistula. DESCRIPTION OF PROCEDURE: The patient was given general anesthesia and intravenous antibiotics. The arm was prepped and draped with Hibiclens. The vein mapping was carried out again with marking of the vein and artery, and incision was made between these two, and an end-to-side anastomosis carried out as mentioned above. We then closed the wounds with Monocryl and Nylon sutures. Blood loss during the procedure is 10 mL. Operation carried out; basilic vein fistula left arm, brachiobasilic. Jon Meyer Jr., MD cc: Dr. Lopes.
[2018-08-22 08:53] LABS: HEMOGLOBIN 13.7 g/dL (12.0-18.0); MEAN CORPUSCULAR HEMOGLOBIN 31.9 pg (27.0-31.0); MEAN PLATELET VOLUME 7.2 fL (7.2-11.7); RBC 4.31 Mil/uL (4.40-5.90); RED CELL DISTRIBUTION WIDTH 13.3 % (11.5-14.5); WHITE BLOOD COUNT 9.2 K/uL (4.8-10.8)
[2018-08-22 09:07] LABS: CALCIUM 9.2 mg/dl (8.6-10.4)
[2018-08-22] MEDS: Ranolazine 500 mg Extended Release Tablets PO SCH (10:06)
--- NOTE | 2018-08-22 10:42 | VASCLAB ---
Date of service: 08/20/2018 PROCEDURE: Upper Extremity Venous Duplex Exam HISTORY: Chronic kidney disease, vein mapping, pre-op AV Fistula. PRIORS: None. TECHNIQUE: Bilateral upper extremity, internal jugular, subclavian, axillary, brachial, ulnar, radial, basilic and upper cephalic veins were evaluated. Flow was assessed with color Doppler, compressibility, assessment of phasic flow and augmentation response. Report prepared by Bipin Avila, BS, RVT FINDINGS: RIGHT: 1. Internal Jugular Vein: Compressibility - Fully compressible: Thrombus - None : Flow - Phasic 2. Subclavian Vein:Compressibility - Fully compressible: Thrombus - None : Flow - Phasic 3. Axillary Vein: Compressibility - Fully compressible: Thrombus - None 4. Brachial Vein: Compressibility - Fully compressible: Thrombus - None 5. Ulnar Vein:Compressibility - Fully compressible: Thrombus - None 6. Radial Vein:Compressibility - Fully compressible: Thrombus - None 7. Cephalic Vein: Compressibility - Fully compressible: thrombus - None 7.1. Upper Arm: Proximal Diameter: 0.27cm. Mid Diameter: 0.19cm. Distal Diameter: 0.20cm. Antecubital Fossa Diameter: 0.22cm 7.2. Forearm: Proximal Diameter: cm. Mid Diameter:cm. Distal Diameter: cm 8. Basilic Vein:Compressibility - Fully compressible: thrombus - None 8.1. Upper Arm:Proximal Diameter: 0.31cm. Mid Diameter: 0.28cm. Distal Diameter: 0.32cm. Antecubital Fossa Diameter: 0.34cm 8.2. Forearm: Proximal Diameter: 0.19cm. Mid Diameter:0.18cm. Distal Diameter: 0.14cm. LEFT: 1. Internal Jugular Vein: Compressibility - Fully compressible: Thrombus - None : Flow - Phasic 2. Subclavian Vein:Compressibility - Fully compressible: Thrombus - None : Flow - Phasic 3. Axillary Vein: Compressibility - Fully compressible: Thrombus - None 4. Brachial Vein: Compressibility - Fully compressible: Thrombus - None 5. Ulnar Vein:Compressibility - Fully compressible: Thrombus - None 6. Radial Vein:Compressibility - Fully compressible: Thrombus - None 7. Cephalic Vein: Compressibility - Fully compressible: thrombus - None 7.1. Upper Arm: Proximal Diameter: 0.32cm. Mid Diameter: 0.20cm. Distal Diameter: 0.15cm. Antecubital Fossa Diameter: 0.18cm 7.2. Forearm: Proximal Diameter: 0.14cm. Mid Diameter:0.23cm. Distal Diameter: 0.18cm 8. Basilic Vein:Compressibility - Fully compressible: thrombus - None 8.1. Upper Arm:Proximal Diameter: 0.31cm. Mid Diameter: 0.32cm. Distal Diameter: 0.24cm. Antecubital Fossa Diameter: 0.21cm 8.2. Forearm: Proximal Diameter: 0.11cm. Mid Diameter:0.14cm. Distal Diameter: cm. OTHER FINDINGS: Right: None. Left: None. IMPRESSION: Right: Diameter measurements of the right cephalic vein is measured between 0.19 cm and 0.27 cm and basilic vein is measured between 0.14 cm and 0.34 cm. Left: Diameter measurements of the left cephalic vein is measured between 0.14 cm and 0.32 cm and basilic vein is measured between 0.11cm and 0.32cm.
--- NOTE | 2018-08-22 11:26 | CP.PCM.PN ---
Subjective - Date & Time of Evaluation Date of Evaluation: 08/22/18 Time of Evaluation: 11:26 - Subjective Subjective: pt is felling better, no cp, no palpitataion, no sob, c/o slight nausea Objective - Vital Signs/Intake and Output Vital Signs (last 24 hours): Temp Pulse Resp BP Pulse Ox 98.5 F 89 18 168/87 H 97 08/22/18 07:31 08/22/18 10:12 08/22/18 10:12 08/22/18 10:12 08/22/18 10:12 Intake and Output: 08/22/18 08/22/18 06:59 18:59 Output Total 500 Balance -500 - Medications Medications: Current Medications Acetaminophen (Tylenol 325mg Tab) 650 mg PO Q6 PRN PRN Reason: Pain, moderate (4-7) Last Admin: 08/22/18 07:54 Dose: 650 mg Amlodipine Besylate (Norvasc) 10 mg PO DAILY [facility] Last Admin: 08/22/18 10:06 Dose: 10 mg Clonidine HCl (Catapres) 0.2 mg PO DAILY [facility] Last Admin: 08/22/18 10:06 Dose: 0.2 mg Heparin Sodium (Porcine) (Heparin) 5,000 units SC Q12 [facility] Last Admin: 08/22/18 10:06 Dose: 5,000 units Hydrochlorothiazide (Hydrodiuril) 25 mg PO DAILY [facility] Last Admin: 08/22/18 10:06 Dose: 25 mg Losartan Potassium (Cozaar) 50 mg PO DAILY [facility] Last Admin: 08/22/18 10:06 Dose: 50 mg Ranolazine (Ranexa) 500 mg PO DAILY [facility] Last Admin: 08/22/18 10:06 Dose: 500 mg - Labs Labs: 08/22/18 08:00 08/22/18 08:00 PT 11.1 SECONDS (9.7-12.2) 08/19/18 12:44 INR 1.0 08/19/18 12:44 APTT 36 SECONDS (21-34) H 08/19/18 12:44 - Head Exam Head Exam: ATRAUMATIC, NORMAL INSPECTION, NORMOCEPHALIC - Eye Exam Eye Exam: EOMI, Normal appearance, PERRL Pupil Exam: NORMAL ACCOMODATION - ENT Exam ENT Exam: Mucous Membranes Moist - Neck Exam Neck Exam: Full ROM - Respiratory Exam Respiratory Exam: Clear to Ausculation Bilateral, NORMAL BREATHING PATTERN - Cardiovascular Exam Cardiovascular Exam: REGULAR RHYTHM, +S1, +S2 - GI/Abdominal Exam GI & Abdominal Exam: Soft, Normal Bowel Sounds - Rectal Exam Rectal Exam: Deferred - Neurological Exam Neurological Exam: Alert, Awake, CN II-XII Intact, Normal Gait, Oriented x3 - Skin Skin Exam: Normal Color Assessment and Plan - Assessment and Plan (Free Text) Assessment: 57 yo male with pmh/o htn, ckd-4, s/p aortic grafting with mild sob, 1. Hypertension 2. CKD-4 3. Nephrotic range proteinuria s/p left UE av fistula placement with good bruit bp is stable c/w current meds c/w current meds pt is stable from renal stand point to d/c home and follow up as an out pt
--- NOTE | 2018-08-22 13:18 | CP.PCM.PN ---
Subjective - Date & Time of Evaluation Date of Evaluation: 08/22/18 Time of Evaluation: 07:00 - Subjective Subjective: Vascular Surgery: Dr. Meyer Pt seen and examined. No acute overnight events. Pt admits to some pain at the L arm incision site as well as some numbness in his fingers. He is however, able to move all fingers/hand and denies other complaints. Tolerating diet, denies fevers/chills. Objective - Vital Signs/Intake and Output Vital Signs (last 24 hours): Temp Pulse Resp BP Pulse Ox 97.8 F 89 18 152/90 H 98 08/22/18 11:28 08/22/18 11:28 08/22/18 11:28 08/22/18 11:28 08/22/18 11:28 Intake and Output: 08/22/18 08/22/18 06:59 18:59 Output Total 500 Balance -500 - Medications Medications: Current Medications Acetaminophen (Tylenol 325mg Tab) 650 mg PO Q6 PRN PRN Reason: Pain, moderate (4-7) Last Admin: 08/22/18 07:54 Dose: 650 mg Amlodipine Besylate (Norvasc) 10 mg PO DAILY [facility] Last Admin: 08/22/18 10:06 Dose: 10 mg Clonidine HCl (Catapres) 0.2 mg PO DAILY [facility] Last Admin: 08/22/18 10:06 Dose: 0.2 mg Heparin Sodium (Porcine) (Heparin) 5,000 units SC Q12 [facility] Last Admin: 08/22/18 10:06 Dose: 5,000 units Hydrochlorothiazide (Hydrodiuril) 25 mg PO DAILY [facility] Last Admin: 08/22/18 10:06 Dose: 25 mg Losartan Potassium (Cozaar) 50 mg PO DAILY [facility] Last Admin: 08/22/18 10:06 Dose: 50 mg Pantoprazole Sodium (Protonix Ec Tab) 20 mg PO DAILY [facility] Ranolazine (Ranexa) 500 mg PO DAILY [facility] Last Admin: 08/22/18 10:06 Dose: 500 mg - Labs Labs: 08/22/18 08:00 08/22/18 08:00 PT 11.1 SECONDS (9.7-12.2) 08/19/18 12:44 INR 1.0 08/19/18 12:44 APTT 36 SECONDS (21-34) H 08/19/18 12:44 - Constitutional Appears: Well, No Acute Distress - Eye Exam Eye Exam: Normal appearance - ENT Exam ENT Exam: Mucous Membranes Moist - Respiratory Exam Respiratory Exam: NORMAL BREATHING PATTERN - Cardiovascular Exam Cardiovascular Exam: RRR - GI/Abdominal Exam GI & Abdominal Exam: Soft - Extremities Exam Additional comments: L arm AVF with palpable thrill; dressing clean dry intact. L hand warm; sensory/motor intact. Diminished radial pulse however, with biphasic doppler signals. 2+ ulnar pulse - Neurological Exam Neurological Exam: Alert, Awake, Oriented x3 - Skin Skin Exam: Dry, Warm Assessment and Plan - Assessment and Plan (Free Text) Assessment: 57M with CKD s/p L arm Brachio-basilic AVF creation POD#1 Plan: - reason for numbess/tingling in the L hand/arm explained to pt in detail due to his newly formed AVF - pt instructed to continue exercises of the L arm/hand - follow up with Dr. Meyer in 2 weeks after discharge - no further surgical intervention at this time - d/w Dr. Mitch Love
[2018-08-22] MEDS: Pantoprazole 20 mg EC Tab PO SCH (14:19)
[2018-08-22 20:02] LABS: ALBUMIN (PEP) 3.9 g/dL (3.8-4.8); ALPHA-1-GLOBULIN (PEP) 0.3 g/dL (0.2-0.3)
--- NOTE | 2018-08-22 23:59 | CARD ---
APPROVED REPORT Date of service: 08/19/2018 EKG Measurement Heart [id number] NE 180P26 [id number] <Conclusion> Normal sinus rhythm Minimal voltage criteria for LVH, may be normal variant Borderline ECG
[2018-08-23] MEDS ORDERED: Magnesium Citrate Oral SOL (300 ml) PO ONE (09:08)
[2018-08-23] MEDS: Ranolazine 500 mg Extended Release Tablets PO SCH (09:50)
[2018-08-23] MEDS: Pantoprazole 20 mg EC Tab PO SCH (09:50)
--- NOTE | 2018-08-23 14:14 | CP.PCM.PN ---
Subjective - Date & Time of Evaluation Date of Evaluation: 08/23/18 Time of Evaluation: 14:14 - Subjective Subjective: pt is seen and examined by me this afternoon. pt's family at bed side no complaints, no sob, no cp, no edema Objective - Vital Signs/Intake and Output Vital Signs (last 24 hours): Temp Pulse Resp BP Pulse Ox 97.5 F L 80 18 119/65 97 08/23/18 08:02 08/23/18 08:45 08/23/18 08:02 08/23/18 08:02 08/23/18 08:02 - Medications Medications: Current Medications Acetaminophen (Tylenol 325mg Tab) 650 mg PO Q6 PRN PRN Reason: Pain, moderate (4-7) Last Admin: 08/22/18 22:03 Dose: 650 mg Amlodipine Besylate (Norvasc) 10 mg PO DAILY [facility] Last Admin: 08/23/18 09:50 Dose: 10 mg Clonidine HCl (Catapres) 0.2 mg PO DAILY [facility] Last Admin: 08/23/18 12:18 Dose: 0.2 mg Docusate Sodium (Colace) 100 mg PO DAILY [facility] Last Admin: 08/23/18 09:50 Dose: 100 mg Heparin Sodium (Porcine) (Heparin) 5,000 units SC Q12 [facility] Last Admin: 08/23/18 09:51 Dose: 5,000 units Hydrochlorothiazide (Hydrodiuril) 25 mg PO DAILY [facility] Last Admin: 08/23/18 09:50 Dose: 25 mg Losartan Potassium (Cozaar) 50 mg PO DAILY [facility] Last Admin: 08/23/18 09:50 Dose: 50 mg Pantoprazole Sodium (Protonix Ec Tab) 20 mg PO DAILY [facility] Last Admin: 08/23/18 09:50 Dose: 20 mg Ranolazine (Ranexa) 500 mg PO DAILY [facility] Last Admin: 08/23/18 09:50 Dose: 500 mg - Labs Labs: 08/22/18 08:00 08/22/18 08:00 PT 11.1 SECONDS (9.7-12.2) 08/19/18 12:44 INR 1.0 08/19/18 12:44 APTT 36 SECONDS (21-34) H 08/19/18 12:44 - Constitutional Appears: Well, Non-toxic, No Acute Distress - Head Exam Head Exam: ATRAUMATIC, NORMAL INSPECTION, NORMOCEPHALIC - Eye Exam Eye Exam: EOMI, Normal appearance, PERRL Pupil Exam: NORMAL ACCOMODATION - ENT Exam ENT Exam: Mucous Membranes Moist - Respiratory Exam Respiratory Exam: Clear to Ausculation Bilateral, NORMAL BREATHING PATTERN - Cardiovascular Exam Cardiovascular Exam: REGULAR RHYTHM, +S1, +S2 - GI/Abdominal Exam GI & Abdominal Exam: Soft, Normal Bowel Sounds - Rectal Exam Rectal Exam: Deferred - Extremities Exam Additional comments: no edema of legs - Neurological Exam Neurological Exam: Alert, Awake, CN II-XII Intact, Normal Gait, Oriented x3 - Psychiatric Exam Psychiatric exam: Normal Mood - Skin Skin Exam: Normal Color, Warm Assessment and Plan - Assessment and Plan (Free Text) Assessment: 57 yo male with pmh/o htn, ckd -4, s/p aortic grafting for possible rupture 1. hypertension 2. NAHUM on ckd-4 3.Nephrotic range proteinuria c/w current anti htn meds s/p left UE av fistula with good bruit awiting for stress test renal function is slightly better back to his base line 4.9
[2018-08-24] MEDS: Ranolazine 500 mg Extended Release Tablets PO SCH (09:28)
[2018-08-24] MEDS: Pantoprazole 20 mg EC Tab PO SCH (09:29)
--- NOTE | 2018-08-24 13:31 | CP.PCM.PN ---
Subjective - Date & Time of Evaluation Date of Evaluation: 08/24/18 Time of Evaluation: 13:31 - Subjective Subjective: pt is feeling better, no sob, no cp, no nausea, vomitings, no abd. pain Objective - Vital Signs/Intake and Output Vital Signs (last 24 hours): Temp Pulse Resp BP Pulse Ox 98.2 F 88 20 126/83 95 08/24/18 07:00 08/24/18 09:30 08/24/18 07:00 08/24/18 09:30 08/24/18 07:00 - Medications Medications: Current Medications Acetaminophen (Tylenol 325mg Tab) 650 mg PO Q6 PRN PRN Reason: Pain, moderate (4-7) Last Admin: 08/24/18 09:29 Dose: 650 mg Amlodipine Besylate (Norvasc) 10 mg PO DAILY [facility] Last Admin: 08/24/18 09:29 Dose: 10 mg Clonidine HCl (Catapres) 0.2 mg PO DAILY [facility] Last Admin: 08/24/18 09:28 Dose: 0.2 mg Docusate Sodium (Colace) 100 mg PO DAILY [facility] Last Admin: 08/24/18 09:28 Dose: 100 mg Heparin Sodium (Porcine) (Heparin) 5,000 units SC Q12 [facility] Last Admin: 08/24/18 09:28 Dose: 5,000 units Hydrochlorothiazide (Hydrodiuril) 25 mg PO DAILY [facility] Last Admin: 08/24/18 09:29 Dose: 25 mg Losartan Potassium (Cozaar) 50 mg PO DAILY [facility] Last Admin: 08/24/18 09:29 Dose: 50 mg Pantoprazole Sodium (Protonix Ec Tab) 20 mg PO DAILY [facility] Last Admin: 08/24/18 09:29 Dose: 20 mg Ranolazine (Ranexa) 500 mg PO DAILY [facility] Last Admin: 08/24/18 09:28 Dose: 500 mg - Labs Labs: 08/22/18 08:00 08/22/18 08:00 PT 11.1 SECONDS (9.7-12.2) 08/19/18 12:44 INR 1.0 08/19/18 12:44 APTT 36 SECONDS (21-34) H 08/19/18 12:44 - Constitutional Appears: Well, Non-toxic, No Acute Distress - Head Exam Head Exam: ATRAUMATIC, NORMAL INSPECTION - Eye Exam Eye Exam: EOMI, Normal appearance, PERRL Pupil Exam: NORMAL ACCOMODATION - ENT Exam ENT Exam: Mucous Membranes Moist - Neck Exam Neck Exam: Full ROM - Cardiovascular Exam Cardiovascular Exam: REGULAR RHYTHM, +S1, +S2 - GI/Abdominal Exam GI & Abdominal Exam: Soft, Normal Bowel Sounds Additional comments: no hepatospleenomegaly - Rectal Exam Rectal Exam: Deferred - Neurological Exam Neurological Exam: Alert, Awake, CN II-XII Intact, Normal Gait, Oriented x3 - Skin Skin Exam: Normal Color, Warm Assessment and Plan - Assessment and Plan (Free Text) Assessment: 57 yo Male with pmh/o htn, ckd-4 ,Johann s/p aortic grafting with nephrotic range proteinuria, all the serology is wnl 1. s/p JOHANN on ckd-4 2. HTN 3. Nephrotic range proteinuria, r/o HTN nephrosclerosis vs chronic GN such as FSGS or Membranous GN for stress in am c/w current meds, hold hepain in am will try to get kidney biopsy if possible during this admission will give DDAVP 24 mcg 1/2 hr before kidney biopsy
[2018-08-24 17:04] LABS: PROTHROMBIN TIME 11.4 SECONDS (9.7-12.2)
--- NOTE | 2018-08-24 17:57 | CP.PCM.PN ---
Subjective - Date & Time of Evaluation Date of Evaluation: 08/24/18 Time of Evaluation: 10:00 - Subjective Subjective: no chest pain pt with proteinuria Dr Tam wants to do renal biopsy Objective - Vital Signs/Intake and Output Vital Signs (last 24 hours): Temp Pulse Resp BP Pulse Ox 98.0 F 93 H 20 129/77 96 08/24/18 15:58 08/24/18 15:58 08/24/18 15:58 08/24/18 15:58 08/24/18 15:58 - Medications Medications: Current Medications Acetaminophen (Tylenol 325mg Tab) 650 mg PO Q6 PRN PRN Reason: Pain, moderate (4-7) Last Admin: 08/24/18 09:29 Dose: 650 mg Amlodipine Besylate (Norvasc) 10 mg PO DAILY [facility] Last Admin: 08/24/18 09:29 Dose: 10 mg Clonidine HCl (Catapres) 0.2 mg PO DAILY [facility] Last Admin: 08/24/18 09:28 Dose: 0.2 mg Docusate Sodium (Colace) 100 mg PO DAILY [facility] Last Admin: 08/24/18 09:28 Dose: 100 mg Heparin Sodium (Porcine) (Heparin) 5,000 units SC Q12 [facility] Last Admin: 08/24/18 09:28 Dose: 5,000 units Hydrochlorothiazide (Hydrodiuril) 25 mg PO DAILY [facility] Last Admin: 08/24/18 09:29 Dose: 25 mg Desmopressin Acetate 24 mcg/ (Sodium Chloride) 56 mls @ 100 mls/hr IV ONCE ONE Stop: 08/25/18 15:43 Losartan Potassium (Cozaar) 50 mg PO DAILY [facility] Last Admin: 08/24/18 09:29 Dose: 50 mg Pantoprazole Sodium (Protonix Ec Tab) 20 mg PO DAILY [facility] Last Admin: 08/24/18 09:29 Dose: 20 mg Ranolazine (Ranexa) 500 mg PO DAILY [facility] Last Admin: 08/24/18 09:28 Dose: 500 mg - Labs Labs: 08/22/18 08:00 08/22/18 08:00 PT 11.4 SECONDS (9.7-12.2) 08/24/18 16:38 INR 1.0 08/24/18 16:38 APTT 33 SECONDS (21-34) 08/24/18 16:38 - Constitutional Appears: Non-toxic - Head Exam Head Exam: NORMAL INSPECTION - Eye Exam Eye Exam: absent: Scleral icterus - ENT Exam ENT Exam: Mucous Membranes Moist - Neck Exam Neck Exam: Full ROM - Respiratory Exam Respiratory Exam: Decreased Breath Sounds - Cardiovascular Exam Cardiovascular Exam: REGULAR RHYTHM - GI/Abdominal Exam GI & Abdominal Exam: Soft - Extremities Exam Extremities Exam: absent: Pedal Edema - Neurological Exam Neurological Exam: Alert, Normal Gait, Oriented x3 Assessment and Plan - Assessment and Plan (Free Text) Assessment: ESRD Chest pain HTN Plan: Lexiscan in am Renal biopsy as per Renal
--- NOTE | 2018-08-24 18:01 | CP.PCM.PN ---
Subjective - Date & Time of Evaluation Date of Evaluation: 08/22/18 Time of Evaluation: 08:30 - Subjective Subjective: s/p AV fistula implant no complication no chest pain no sob Objective - Vital Signs/Intake and Output Vital Signs (last 24 hours): Temp Pulse Resp BP Pulse Ox 98.0 F 93 H 20 129/77 96 08/24/18 15:58 08/24/18 15:58 08/24/18 15:58 08/24/18 15:58 08/24/18 15:58 - Medications Medications: Current Medications Acetaminophen (Tylenol 325mg Tab) 650 mg PO Q6 PRN PRN Reason: Pain, moderate (4-7) Last Admin: 08/24/18 09:29 Dose: 650 mg Amlodipine Besylate (Norvasc) 10 mg PO DAILY [facility] Last Admin: 08/24/18 09:29 Dose: 10 mg Clonidine HCl (Catapres) 0.2 mg PO DAILY [facility] Last Admin: 08/24/18 09:28 Dose: 0.2 mg Docusate Sodium (Colace) 100 mg PO DAILY [facility] Last Admin: 08/24/18 09:28 Dose: 100 mg Heparin Sodium (Porcine) (Heparin) 5,000 units SC Q12 [facility] Last Admin: 08/24/18 09:28 Dose: 5,000 units Hydrochlorothiazide (Hydrodiuril) 25 mg PO DAILY [facility] Last Admin: 08/24/18 09:29 Dose: 25 mg Desmopressin Acetate 24 mcg/ (Sodium Chloride) 56 mls @ 100 mls/hr IV ONCE ONE Stop: 08/25/18 15:43 Losartan Potassium (Cozaar) 50 mg PO DAILY [facility] Last Admin: 08/24/18 09:29 Dose: 50 mg Pantoprazole Sodium (Protonix Ec Tab) 20 mg PO DAILY [facility] Last Admin: 08/24/18 09:29 Dose: 20 mg Ranolazine (Ranexa) 500 mg PO DAILY [facility] Last Admin: 08/24/18 09:28 Dose: 500 mg - Labs Labs: 08/22/18 08:00 08/22/18 08:00 PT 11.4 SECONDS (9.7-12.2) 08/24/18 16:38 INR 1.0 08/24/18 16:38 APTT 33 SECONDS (21-34) 08/24/18 16:38 - Constitutional Appears: Non-toxic - Head Exam Head Exam: NORMAL INSPECTION - Eye Exam Eye Exam: Scleral icterus - ENT Exam ENT Exam: Mucous Membranes Moist - Neck Exam Neck Exam: Full ROM - Respiratory Exam Respiratory Exam: Clear to Ausculation Bilateral - Cardiovascular Exam Cardiovascular Exam: REGULAR RHYTHM - GI/Abdominal Exam GI & Abdominal Exam: Soft - Extremities Exam Extremities Exam: Full ROM, Pedal Edema - Neurological Exam Neurological Exam: Alert, Awake, Oriented x3 Assessment and Plan - Assessment and Plan (Free Text) Assessment: ESRD Prinzmetal angina HTN Plan: Cont meds Cont hemodialysis
--- NOTE | 2018-08-24 18:07 | CP.PCM.PN ---
Subjective - Date & Time of Evaluation Date of Evaluation: 08/21/18 Time of Evaluation: 18:00 - Subjective Subjective: s/p AVfistula LUE no chest pain no complication Objective - Vital Signs/Intake and Output Vital Signs (last 24 hours): Temp Pulse Resp BP Pulse Ox 98.0 F 93 H 20 129/77 96 08/24/18 15:58 08/24/18 15:58 08/24/18 15:58 08/24/18 15:58 08/24/18 15:58 - Medications Medications: Current Medications Acetaminophen (Tylenol 325mg Tab) 650 mg PO Q6 PRN PRN Reason: Pain, moderate (4-7) Last Admin: 08/24/18 09:29 Dose: 650 mg Amlodipine Besylate (Norvasc) 10 mg PO DAILY [facility] Last Admin: 08/24/18 09:29 Dose: 10 mg Clonidine HCl (Catapres) 0.2 mg PO DAILY [facility] Last Admin: 08/24/18 09:28 Dose: 0.2 mg Docusate Sodium (Colace) 100 mg PO DAILY [facility] Last Admin: 08/24/18 09:28 Dose: 100 mg Heparin Sodium (Porcine) (Heparin) 5,000 units SC Q12 [facility] Last Admin: 08/24/18 09:28 Dose: 5,000 units Hydrochlorothiazide (Hydrodiuril) 25 mg PO DAILY [facility] Last Admin: 08/24/18 09:29 Dose: 25 mg Desmopressin Acetate 24 mcg/ (Sodium Chloride) 56 mls @ 100 mls/hr IV ONCE ONE Stop: 08/25/18 15:43 Losartan Potassium (Cozaar) 50 mg PO DAILY [facility] Last Admin: 08/24/18 09:29 Dose: 50 mg Pantoprazole Sodium (Protonix Ec Tab) 20 mg PO DAILY [facility] Last Admin: 08/24/18 09:29 Dose: 20 mg Ranolazine (Ranexa) 500 mg PO DAILY [facility] Last Admin: 08/24/18 09:28 Dose: 500 mg - Labs Labs: 08/22/18 08:00 08/22/18 08:00 PT 11.4 SECONDS (9.7-12.2) 08/24/18 16:38 INR 1.0 08/24/18 16:38 APTT 33 SECONDS (21-34) 08/24/18 16:38 - Constitutional Appears: Non-toxic - Head Exam Head Exam: NORMAL INSPECTION - Eye Exam Eye Exam: Scleral icterus - ENT Exam ENT Exam: Mucous Membranes Moist - Neck Exam Neck Exam: Full ROM - Respiratory Exam Respiratory Exam: NORMAL BREATHING PATTERN - Cardiovascular Exam Cardiovascular Exam: REGULAR RHYTHM - GI/Abdominal Exam GI & Abdominal Exam: Soft - Extremities Exam Extremities Exam: absent: Pedal Edema Assessment and Plan - Assessment and Plan (Free Text) Assessment: ESRD s/p AVFistula Prinzmetal angina HTN Plan: Cont hemodialysis
--- NOTE | 2018-08-24 18:11 | CP.PCM.PN ---
Subjective - Date & Time of Evaluation Date of Evaluation: 08/23/18 Time of Evaluation: 09:00 - Subjective Subjective: no chest pain tolerating dialysis no complication good AVfistula bruit Objective - Vital Signs/Intake and Output Vital Signs (last 24 hours): Temp Pulse Resp BP Pulse Ox 98.0 F 93 H 20 129/77 96 08/24/18 15:58 08/24/18 15:58 08/24/18 15:58 08/24/18 15:58 08/24/18 15:58 - Medications Medications: Current Medications Acetaminophen (Tylenol 325mg Tab) 650 mg PO Q6 PRN PRN Reason: Pain, moderate (4-7) Last Admin: 08/24/18 09:29 Dose: 650 mg Amlodipine Besylate (Norvasc) 10 mg PO DAILY [facility] Last Admin: 08/24/18 09:29 Dose: 10 mg Clonidine HCl (Catapres) 0.2 mg PO DAILY [facility] Last Admin: 08/24/18 09:28 Dose: 0.2 mg Docusate Sodium (Colace) 100 mg PO DAILY [facility] Last Admin: 08/24/18 09:28 Dose: 100 mg Heparin Sodium (Porcine) (Heparin) 5,000 units SC Q12 [facility] Last Admin: 08/24/18 09:28 Dose: 5,000 units Hydrochlorothiazide (Hydrodiuril) 25 mg PO DAILY [facility] Last Admin: 08/24/18 09:29 Dose: 25 mg Desmopressin Acetate 24 mcg/ (Sodium Chloride) 56 mls @ 100 mls/hr IV ONCE ONE Stop: 08/25/18 15:43 Losartan Potassium (Cozaar) 50 mg PO DAILY [facility] Last Admin: 08/24/18 09:29 Dose: 50 mg Pantoprazole Sodium (Protonix Ec Tab) 20 mg PO DAILY [facility] Last Admin: 08/24/18 09:29 Dose: 20 mg Ranolazine (Ranexa) 500 mg PO DAILY [facility] Last Admin: 08/24/18 09:28 Dose: 500 mg - Labs Labs: 08/22/18 08:00 08/22/18 08:00 PT 11.4 SECONDS (9.7-12.2) 08/24/18 16:38 INR 1.0 08/24/18 16:38 APTT 33 SECONDS (21-34) 11/11/18 16:38 - Constitutional Appears: Non-toxic - Head Exam Head Exam: NORMAL INSPECTION - Eye Exam Eye Exam: absent: Scleral icterus - ENT Exam ENT Exam: Mucous Membranes Moist - Neck Exam Neck Exam: Full ROM - Respiratory Exam Respiratory Exam: NORMAL BREATHING PATTERN - Cardiovascular Exam Cardiovascular Exam: REGULAR RHYTHM - GI/Abdominal Exam GI & Abdominal Exam: Soft - Extremities Exam Extremities Exam: absent: Pedal Edema Assessment and Plan - Assessment and Plan (Free Text) Assessment: ESRD HTN Prinzmetal angina Plan: Lexiscan Cont dialysis
[2018-08-25 05:40] LABS: CK-MB 0.68 ng/mL (0.0-3.38); TROPONIN I 0.018 ng/mL (0.00-0.120)
[2018-08-25] MEDS ORDERED: Caffeine Citrated **INJ** 20 MG/ML IV ONE (08:34)
[2018-08-25] MEDS: Ranolazine 500 mg Extended Release Tablets PO SCH (10:35)
[2018-08-25] MEDS: Pantoprazole 20 mg EC Tab PO SCH (10:35)
--- NOTE | 2018-08-25 10:46 | CP.PCM.PN ---
Subjective - Date & Time of Evaluation Date of Evaluation: 08/25/18 Time of Evaluation: 10:43 - Subjective Subjective: no complaints, no sob, s/p stress test today, received aspirin 81 mg po x1 prior to stress test , kidney biopsy can't be done today, scheduled for saturday as per Dr. Thibodeaux Objective - Vital Signs/Intake and Output Vital Signs (last 24 hours): Temp Pulse Resp BP Pulse Ox 97.8 F 75 20 124/74 95 08/25/18 07:00 08/25/18 07:00 08/25/18 07:00 08/25/18 07:00 08/25/18 07:00 - Medications Medications: Current Medications Acetaminophen (Tylenol 325mg Tab) 650 mg PO Q6 PRN PRN Reason: Pain, moderate (4-7) Last Admin: 08/24/18 19:53 Dose: 650 mg Amlodipine Besylate (Norvasc) 10 mg PO DAILY [facility] Last Admin: 08/25/18 10:35 Dose: 10 mg Clonidine HCl (Catapres) 0.2 mg PO DAILY [facility] Last Admin: 08/25/18 10:35 Dose: 0.2 mg Docusate Sodium (Colace) 100 mg PO DAILY [facility] Last Admin: 08/25/18 10:35 Dose: 100 mg Gabapentin (Neurontin) 300 mg PO Q8H [facility] Last Admin: 08/25/18 08:31 Dose: Not Given Heparin Sodium (Porcine) (Heparin) 5,000 units SC Q12 [facility] Last Admin: 08/24/18 23:35 Dose: Not Given Hydrochlorothiazide (Hydrodiuril) 25 mg PO DAILY [facility] Last Admin: 08/25/18 10:35 Dose: 25 mg Desmopressin Acetate 24 mcg/ (Sodium Chloride) 56 mls @ 100 mls/hr IV ONCE ONE Stop: 08/25/18 15:43 Losartan Potassium (Cozaar) 50 mg PO DAILY [facility] Last Admin: 08/25/18 10:35 Dose: 50 mg Pantoprazole Sodium (Protonix Ec Tab) 20 mg PO DAILY [facility] Last Admin: 08/25/18 10:35 Dose: 20 mg Ranolazine (Ranexa) 500 mg PO DAILY [facility] Last Admin: 08/25/18 10:35 Dose: 500 mg - Labs Labs: 08/22/18 08:00 08/22/18 08:00 PT 11.4 SECONDS (9.7-12.2) 08/24/18 16:38 INR 1.0 08/24/18 16:38 APTT 33 SECONDS (21-34) 08/24/18 16:38 - Constitutional Appears: Well, Older Than Stated Age - Head Exam Head Exam: ATRAUMATIC, NORMAL INSPECTION, NORMOCEPHALIC - Eye Exam Eye Exam: EOMI, Normal appearance, PERRL Pupil Exam: NORMAL ACCOMODATION - ENT Exam ENT Exam: Mucous Membranes Moist - Neck Exam Neck Exam: Full ROM, Normal Inspection - Respiratory Exam Respiratory Exam: Clear to Ausculation Bilateral, NORMAL BREATHING PATTERN - Cardiovascular Exam Cardiovascular Exam: REGULAR RHYTHM, +S1, +S2 - GI/Abdominal Exam GI & Abdominal Exam: Soft, Normal Bowel Sounds - Rectal Exam Rectal Exam: Deferred - Extremities Exam Additional comments: no edema of legs - Neurological Exam Neurological Exam: Alert, Awake, CN II-XII Intact, Oriented x3 - Skin Skin Exam: Normal Color, Warm Assessment and Plan - Assessment and Plan (Free Text) Assessment: 57 yo male with htn, ckd-4, nephrotic range proteinuria, s/p NAHUM 1. CKD-4 2. HTn 3. Nephrotic range prtoteinuria for kidney biopsy on saturday will give DDAVP 24 mcg ivp x1 30 minutes before kidney biopsy check cbc, cmp in am c/w current meds case d/w dr. thibodeaux
--- NOTE | 2018-08-26 05:31 | CARD ---
APPROVED REPORT Date of service: 08/25/2018 Protocol: LEXISCAN Test Type: LEXISCAN STRESS Test Indications: CHEST PAIN Medications: LIST Target HR: 163 bpm Resting ECG: NSR w/ NS ST T CHANGES Resting Heart Rate: 73 bpm Resting Blood Pressure: 134/80mmHg submaximum (85%): 139 bpm TEST SUMMARY PREINFSNHYPERV.10:[id number]/80.0. INFUSIONDOSE 100:300.00.01.073/.0. [id number]/80.0. PROCEDURE Pharmacologic stress testing was performed using 0.4mg per 5ml of regadenoson given intravenously over 7-10 seconds. POST EXERCISE Reason for Termination: Protocol Completed Target HR: No Max HR: 73 bpm 58% of Maximum Predicted HR: 163 bpm Exercise duration: 00:30 min:sec, 0 Stage Exercise capacity: 1.0METs Max Blood Pressure: 140/80mmHg Blood Pressure response to exercise: normal resting BP - appropriate response Heart Rate response to exercise: appropriate Chest Pain: No, none Angina index: 0 Arrhythmia: No, none ST Change: No, none Deviation: 0 mm INTERPRETATION Stress EKG Conclusion: NEGATIVE LEXISCAN STRESS TEST NORMAL BP RESPONSE TO LEXISCAN NUCLEAR STUDIES TO BE READ SEPARATELY EXAM: Myocardial Perfusion STRESS/REST Imaging Protocol The imaging protocol used to acquire images was Stress Tc-99m/rest Tc-99m 1 day Rest Spect myocardial perfusion imaging was performed in supine position 45 minutes following the injection of 30.4 mCi of Tc-99 Myoview. Gated Stress Spect was performed 45 minutes after intravenous 10.0 mCi Tc-99 Myoview injection. The images were gated to evaluate regional wall motion and calculate ventricular ejection fraction.Images were reconstructed using backfilter projection method in short horizontal and verticle long axis. Spect slices were generated. RESTING DATA EDV96.55dnPP8.60L/min1/3 Pk. Filling Rate0.98EDV/sec LV Time to Pk. Filling Mkyn385.09msec ESV34.00mlMyocardial Hjtp877.00gLV Time to Pk. Ejection Avsx836.96msec Pk. Fill Rate2.71EDV/secAv. Heart Rate75.00bpm EF65.00%Pk. Emptying Rate4.00ESV/sec STRESS DATA PXD478.68quCI2.90L/min ESV55.00mlMyocardial Ywmp998.00g Pk. Fill Rate1.78EDV/sec EF57.00%Pk. Emptying Rate3.68ESV/sec 1/3 Pk. Filling Rate1.04EDV/secRegional WT score at stress:2.00 LV Time to Pk. Filling Rate:195.19msecRegional WM score at stress:0.00 LV Time to Pk. Ejection Rate:198.26msecSummed WT score at stress:9.00 Av. Heart Rate80.00bpmSummed WM score at stress:12.00 LV Perf. Quant 17 Seg. SSS7.00 17 Seg. SRS1.00 17 Seg. SDS6.00 Stress Defect Extent (% LAD)0.00Rest Defect Extent (% LAD)0.00Rev. Defect Extent (% LAD)0.00 Stress Defect Extent (% LCX)42.50Rest Defect Extent (% LCX)11.30Rev. Defect Extent (% LCX)27.50 Stress Defect Extent (% RCA)0.00Rest Defect Extent (% RCA)0.00Rev. Defect Extent (% RCA)0.00 Stress Defect Extent (% JULI)10.90Rest Defect Extent (% JULI)2.00Rev. Defect Extent (% JULI)8.00 IMPRESSION Normal Myocardial Perfusion exercise stress study Left Ventricle LV Function:Left ventricle systolic function is normal. The Ejection Fraction is 55-60%. Metabolism/Perfusion There are no defects. There are no perfusion/metabolism defects. Conclusion 1. There is no stress-induced ischemia noted. 2. Left ventricle systolic function is normal. 3. The Ejection Fraction is 55-60%.
[2018-08-26] MEDS: Pantoprazole 20 mg EC Tab PO SCH (09:03)
[2018-08-26] MEDS: Ranolazine 500 mg Extended Release Tablets PO SCH (09:07)
--- NOTE | 2018-08-26 10:22 | CP.PCM.PN ---
Subjective - Date & Time of Evaluation Date of Evaluation: 08/26/18 Time of Evaluation: 10:22 - Subjective Subjective: pt is oob to chair, no cp, no sob, no abd. pain, c/o occ left arm pain Objective - Vital Signs/Intake and Output Vital Signs (last 24 hours): Temp Pulse Resp BP Pulse Ox 98.7 F 82 20 143/82 97 08/26/18 09:02 08/26/18 09:00 08/26/18 07:00 08/26/18 09:00 08/26/18 07:00 - Medications Medications: Current Medications Acetaminophen (Tylenol 325mg Tab) 650 mg PO Q6 PRN PRN Reason: Pain, moderate (4-7) Last Admin: 08/26/18 09:02 Dose: 650 mg Amlodipine Besylate (Norvasc) 10 mg PO DAILY [facility] Last Admin: 08/26/18 09:03 Dose: 10 mg Clonidine HCl (Catapres) 0.2 mg PO DAILY [facility] Last Admin: 08/26/18 09:03 Dose: 0.2 mg Docusate Sodium (Colace) 100 mg PO DAILY [facility] Last Admin: 08/26/18 09:03 Dose: 100 mg Gabapentin (Neurontin) 300 mg PO Q8H [facility] Last Admin: 08/26/18 09:07 Dose: 300 mg Heparin Sodium (Porcine) (Heparin) 5,000 units SC Q12 [facility] Last Admin: 08/24/18 23:35 Dose: Not Given Hydrochlorothiazide (Hydrodiuril) 25 mg PO DAILY [facility] Last Admin: 08/26/18 09:06 Dose: 25 mg Losartan Potassium (Cozaar) 50 mg PO DAILY [facility] Last Admin: 08/26/18 09:06 Dose: 50 mg Pantoprazole Sodium (Protonix Ec Tab) 20 mg PO DAILY [facility] Last Admin: 08/26/18 09:03 Dose: 20 mg Ranolazine (Ranexa) 500 mg PO DAILY [facility] Last Admin: 08/26/18 09:07 Dose: 500 mg - Labs Labs: 08/22/18 08:00 08/22/18 08:00 PT 11.4 SECONDS (9.7-12.2) 08/24/18 16:38 INR 1.0 08/24/18 16:38 APTT 33 SECONDS (21-34) 08/24/18 16:38 - Constitutional Appears: Well, Non-toxic, No Acute Distress - Head Exam Head Exam: ATRAUMATIC, NORMAL INSPECTION, NORMOCEPHALIC - Eye Exam Eye Exam: EOMI, Normal appearance, PERRL Pupil Exam: NORMAL ACCOMODATION - ENT Exam ENT Exam: Mucous Membranes Moist - Neck Exam Neck Exam: Full ROM - Respiratory Exam Respiratory Exam: Clear to Ausculation Bilateral, NORMAL BREATHING PATTERN - Cardiovascular Exam Cardiovascular Exam: REGULAR RHYTHM, +S1, +S2 - GI/Abdominal Exam GI & Abdominal Exam: Soft, Normal Bowel Sounds - Neurological Exam Neurological Exam: Alert, Awake, CN II-XII Intact, Normal Gait, Oriented x3 - Psychiatric Exam Psychiatric exam: Normal Affect, Normal Mood - Skin Skin Exam: Normal Color, Warm Assessment and Plan - Assessment and Plan (Free Text) Assessment: 57 yo male with htn, ckd-4, nephrotic range proteinuria, s/p NAHUM 1. CKD-4 2. HTn 3. Nephrotic range prtoteinuria for kidney biopsy on saturday will give DDAVP 24 mcg ivp x1 30 minutes before kidney biopsy check cbc, cmp in am c/w current meds no aspirin , no heparin will d/c hctz, will give DDavp 24 mcg 1/2 hr before kidney bx will add renvela 800 mg po tid with food
[2018-08-26 13:59] LABS: HEMOGLOBIN 12.9 g/dL (12.0-18.0); MEAN CELL VOLUME 91.5 fL (80.0-94.0); MEAN CORPUSCULAR HEMOGLOBIN 31.6 pg (27.0-31.0); MEAN CORPUSCULAR HGB CONC 34.5 g/dL (33.0-37.0); MEAN PLATELET VOLUME 7.5 fL (7.2-11.7); RBC 4.08 Mil/uL (4.40-5.90); WHITE BLOOD COUNT 5.6 K/uL (4.8-10.8)
[2018-08-26 14:32] LABS: CALCIUM 9.2 mg/dl (8.6-10.4)
--- NOTE | 2018-08-26 21:36 | CP.PCM.PN ---
Subjective - Date & Time of Evaluation Date of Evaluation: 08/25/18 - Subjective Subjective: schedule for kidney bx no chest pain Lexiscan- negative for ischemia Objective - Vital Signs/Intake and Output Vital Signs (last 24 hours): Temp Pulse Resp BP Pulse Ox 97.7 F 75 20 118/76 98 08/26/18 15:00 08/26/18 15:00 08/26/18 15:00 08/26/18 15:00 08/26/18 15:00 - Medications Medications: Current Medications Acetaminophen (Tylenol 325mg Tab) 650 mg PO Q6 PRN PRN Reason: Pain, moderate (4-7) Last Admin: 08/26/18 20:00 Dose: 650 mg Amlodipine Besylate (Norvasc) 10 mg PO DAILY [facility] Last Admin: 08/26/18 09:03 Dose: 10 mg Clonidine HCl (Catapres) 0.2 mg PO DAILY [facility] Last Admin: 08/26/18 09:03 Dose: 0.2 mg Docusate Sodium (Colace) 100 mg PO DAILY [facility] Last Admin: 08/26/18 09:03 Dose: 100 mg Gabapentin (Neurontin) 300 mg PO Q8H [facility] Last Admin: 08/26/18 17:21 Dose: 300 mg Heparin Sodium (Porcine) (Heparin) 5,000 units SC Q12 [facility] Last Admin: 08/26/18 21:08 Dose: Not Given Hydrochlorothiazide (Hydrodiuril) 25 mg PO DAILY [facility] Last Admin: 08/26/18 09:06 Dose: 25 mg Losartan Potassium (Cozaar) 50 mg PO DAILY [facility] Last Admin: 08/26/18 09:06 Dose: 50 mg Pantoprazole Sodium (Protonix Ec Tab) 20 mg PO DAILY [facility] Last Admin: 08/26/18 09:03 Dose: 20 mg Ranolazine (Ranexa) 500 mg PO DAILY [facility] Last Admin: 08/26/18 09:07 Dose: 500 mg - Labs Labs: 08/26/18 13:47 08/26/18 13:47 PT 11.4 SECONDS (9.7-12.2) 08/24/18 16:38 INR 1.0 08/24/18 16:38 APTT 33 SECONDS (21-34) 08/24/18 16:38 - Constitutional Appears: Non-toxic - Head Exam Head Exam: NORMAL INSPECTION - Eye Exam Eye Exam: absent: Scleral icterus - ENT Exam ENT Exam: Mucous Membranes Moist - Neck Exam Neck Exam: Full ROM - Respiratory Exam Respiratory Exam: NORMAL BREATHING PATTERN - Cardiovascular Exam Cardiovascular Exam: REGULAR RHYTHM - GI/Abdominal Exam GI & Abdominal Exam: Soft - Extremities Exam Extremities Exam: Full ROM. absent: Pedal Edema - Neurological Exam Neurological Exam: Alert, Oriented x3 Assessment and Plan - Assessment and Plan (Free Text) Assessment: ESRD Prinzmetal angina HTN Plan: For renal biopsy
--- NOTE | 2018-08-26 21:40 | CP.PCM.PN ---
Subjective - Date & Time of Evaluation Date of Evaluation: 08/26/18 Time of Evaluation: 08:30 - Subjective Subjective: Renal bx cancelled for today re-sked for AM no chest pain Objective - Vital Signs/Intake and Output Vital Signs (last 24 hours): Temp Pulse Resp BP Pulse Ox 97.7 F 75 20 118/76 98 08/26/18 15:00 08/26/18 15:00 08/26/18 15:00 08/26/18 15:00 08/26/18 15:00 - Medications Medications: Current Medications Acetaminophen (Tylenol 325mg Tab) 650 mg PO Q6 PRN PRN Reason: Pain, moderate (4-7) Last Admin: 08/26/18 20:00 Dose: 650 mg Amlodipine Besylate (Norvasc) 10 mg PO DAILY [facility] Last Admin: 08/26/18 09:03 Dose: 10 mg Clonidine HCl (Catapres) 0.2 mg PO DAILY [facility] Last Admin: 08/26/18 09:03 Dose: 0.2 mg Docusate Sodium (Colace) 100 mg PO DAILY [facility] Last Admin: 08/26/18 09:03 Dose: 100 mg Gabapentin (Neurontin) 300 mg PO Q8H [facility] Last Admin: 08/26/18 17:21 Dose: 300 mg Heparin Sodium (Porcine) (Heparin) 5,000 units SC Q12 [facility] Last Admin: 08/26/18 21:08 Dose: Not Given Hydrochlorothiazide (Hydrodiuril) 25 mg PO DAILY [facility] Last Admin: 08/26/18 09:06 Dose: 25 mg Losartan Potassium (Cozaar) 50 mg PO DAILY [facility] Last Admin: 08/26/18 09:06 Dose: 50 mg Pantoprazole Sodium (Protonix Ec Tab) 20 mg PO DAILY [facility] Last Admin: 08/26/18 09:03 Dose: 20 mg Ranolazine (Ranexa) 500 mg PO DAILY [facility] Last Admin: 08/26/18 09:07 Dose: 500 mg - Labs Labs: 08/26/18 13:47 08/26/18 13:47 PT 11.4 SECONDS (9.7-12.2) 08/24/18 16:38 INR 1.0 08/24/18 16:38 APTT 33 SECONDS (21-34) 08/24/18 16:38 - Constitutional Appears: Non-toxic - Eye Exam Eye Exam: absent: Scleral icterus - Neck Exam Neck Exam: Full ROM - Respiratory Exam Respiratory Exam: NORMAL BREATHING PATTERN - Cardiovascular Exam Cardiovascular Exam: REGULAR RHYTHM - GI/Abdominal Exam GI & Abdominal Exam: Soft - Extremities Exam Extremities Exam: absent: Pedal Edema - Neurological Exam Neurological Exam: Alert, Oriented x3 Assessment and Plan - Assessment and Plan (Free Text) Assessment: ESRD with proteinuria Prinzmetal angina HTN Plan: Renal bx tomorrow
[2018-08-26 21:43] LABS: INR 1.1; PROTHROMBIN TIME 11.8 SECONDS (9.7-12.2)
[2018-08-27] MEDS: Pantoprazole 20 mg EC Tab PO SCH (10:32)
[2018-08-27] MEDS: Ranolazine 500 mg Extended Release Tablets PO SCH (10:34)
--- NOTE | 2018-08-27 12:37 | CP.PCM.PN ---
Subjective - Date & Time of Evaluation Date of Evaluation: 08/27/18 Time of Evaluation: 12:37 - Subjective Subjective: pt denies any complaints, no sob, no cp, no palpitation, no nausea, no vomitings Objective - Vital Signs/Intake and Output Vital Signs (last 24 hours): Temp Pulse Resp BP Pulse Ox 97.5 F L 73 20 127/80 98 08/27/18 07:49 08/27/18 07:49 08/27/18 07:49 08/27/18 07:49 08/27/18 07:49 Intake and Output: 08/27/18 08/27/18 06:59 18:59 Intake Total 100 Balance 100 - Medications Medications: Current Medications Acetaminophen (Tylenol 325mg Tab) 650 mg PO Q6 PRN PRN Reason: Pain, moderate (4-7) Last Admin: 08/27/18 10:31 Dose: 650 mg Amlodipine Besylate (Norvasc) 10 mg PO DAILY [facility] Last Admin: 08/27/18 10:33 Dose: Not Given Clonidine HCl (Catapres) 0.2 mg PO DAILY [facility] Last Admin: 08/27/18 11:51 Dose: Not Given Docusate Sodium (Colace) 100 mg PO DAILY [facility] Last Admin: 08/27/18 10:32 Dose: 100 mg Gabapentin (Neurontin) 300 mg PO Q8H [facility] Last Admin: 08/27/18 09:40 Dose: Not Given Losartan Potassium (Cozaar) 50 mg PO DAILY [facility] Last Admin: 08/27/18 10:31 Dose: 50 mg Pantoprazole Sodium (Protonix Ec Tab) 20 mg PO DAILY [facility] Last Admin: 08/27/18 10:32 Dose: 20 mg Ranolazine (Ranexa) 500 mg PO DAILY [facility] Last Admin: 08/27/18 10:34 Dose: Not Given Sevelamer Carbonate (Renvela) 800 mg PO TIDCC [facility] Last Admin: 08/27/18 12:09 Dose: Not Given - Labs Labs: 08/26/18 13:47 08/26/18 13:47 PT 11.8 SECONDS (9.7-12.2) 08/26/18 21:31 INR 1.1 08/26/18 21:31 APTT 34 SECONDS (21-34) 08/26/18 21:31 - Constitutional Appears: Well, Non-toxic, No Acute Distress - Head Exam Head Exam: ATRAUMATIC, NORMAL INSPECTION - Eye Exam Eye Exam: EOMI, Normal appearance, PERRL Pupil Exam: NORMAL ACCOMODATION - ENT Exam ENT Exam: Mucous Membranes Moist - Neck Exam Neck Exam: Full ROM - Respiratory Exam Respiratory Exam: Clear to Ausculation Bilateral, NORMAL BREATHING PATTERN - Cardiovascular Exam Cardiovascular Exam: REGULAR RHYTHM, +S1, +S2 - GI/Abdominal Exam GI & Abdominal Exam: Soft, Normal Bowel Sounds - Rectal Exam Rectal Exam: Deferred - Extremities Exam Additional comments: no edema of legs - Psychiatric Exam Psychiatric exam: Normal Affect, Normal Mood - Skin Skin Exam: Dry, Normal Color Assessment and Plan - Assessment and Plan (Free Text) Assessment: 57 yo male with htn, ckd-4, nephrotic range proteinuria, s/p NAHUM 1. CKD-4 2. HTn 3. Nephrotic range prtoteinuria for kidney biopsy this afternoon will give DDAVP 24 mcg ivp x 1 30 minutes before kidney biopsy check cbc, cmp in am c/w current meds no aspirin , no heparin will d/c hctz, will give DDAVP 24 mcg 1/2 hr before kidney bx will c/w renvela 800 mg po tid with food
--- NOTE | 2018-08-27 14:11 | PCM.SURG1 ---
Surgeon's Initial Post Op Note - Surgeon's Notes Surgeon: Waldemar Thibodeaux MD Sales Account Executive: NONE Type of Anesthesia: IV Sedation Pre-Operative Diagnosis: Renal failure Operative Findings: Echogenic kidneys Post-Operative Diagnosis: Renal failure Operation Performed: US guided left renal biopsy. Specimen/Specimens Removed: 18 gauge core x 3 Estimated Blood Loss: EBL {In ML}: 2 Blood Products Given: N/A Drains Used: No Drains Post-Op Condition: Fair Date of Surgery/Procedure: 08/27/18 Time of Surgery/Procedure: 14:10
[2018-08-27] MEDS ORDERED: Midazolam 2 MG/2 ML VIAL ONE (14:19)
--- NOTE | 2018-08-27 21:14 | CARD ---
APPROVED REPORT Date of service: 08/25/2018 EKG Measurement Heart [id number] <Conclusion> Sinus rhythm with 1st degree AV block Left ventricular hypertrophy with repolarization abnormality Baseline artifact Abnormal ECG
[2018-08-28 08:17] VITALS: RESP 20; TEMP 98.2; O2SAT 97
[2018-08-28 08:32] LABS: ALB/GLOB RATIO 1.6 (1.0-2.1); ALBUMIN 4.1 g/dL (3.5-5.0); CALCIUM 8.6 mg/dl (8.6-10.4)
[2018-08-28 08:55] LABS: BASO # 0.1 K/uL (0.0-0.2); BASO % 0.8 % (0.0-2.0); EOS # 0.2 K/uL (0.0-0.7); EOS % 3.9 % (0.0-4.0); LYMPH # 1.2 K/uL (1.0-4.3); LYMPH % 19.8 % (20.0-40.0); MEAN CELL VOLUME 91.2 fL (80.0-94.0); MEAN CORPUSCULAR HEMOGLOBIN 31.5 pg (27.0-31.0); MEAN CORPUSCULAR HGB CONC 34.5 g/dL (33.0-37.0); MEAN PLATELET VOLUME 7.4 fL (7.2-11.7); MONO # 0.8 K/uL (0.0-0.8); MONO % 12.1 % (0.0-10.0); NEUT % 63.4 % (50.0-75.0); NRBC % 0.1 % (0.0-2.0); RBC 3.83 Mil/uL (4.40-5.90); RED CELL DISTRIBUTION WIDTH 13.3 % (11.5-14.5); WHITE BLOOD COUNT 6.3 K/uL (4.8-10.8)
[2018-08-28 09:48] VITALS: BP 158/82; PULSE 98
[2018-08-28] MEDS: Ranolazine 500 mg Extended Release Tablets PO SCH (09:50)
[2018-08-28] MEDS: Pantoprazole 20 mg EC Tab PO SCH (09:50)
--- NOTE | 2018-08-28 12:10 | CP.PCM.PN ---
Subjective - Date & Time of Evaluation Date of Evaluation: 08/28/18 Time of Evaluation: 12:10 - Subjective Subjective: pt denies any gross hematuria, s/p left kidney biopsy on 08/27/2018 by ZECHARIAH myers no sob, no abd. pain, urine is clear as per pt Objective - Vital Signs/Intake and Output Vital Signs (last 24 hours): Temp Pulse Resp BP Pulse Ox 98.2 F 98 H 20 158/82 H 97 08/28/18 07:23 08/28/18 09:48 08/28/18 07:23 08/28/18 09:48 08/28/18 07:23 - Medications Medications: Current Medications Acetaminophen (Tylenol 325mg Tab) 650 mg PO Q6 PRN PRN Reason: Pain, moderate (4-7) Last Admin: 08/27/18 19:58 Dose: 650 mg Amlodipine Besylate (Norvasc) 10 mg PO DAILY [facility] Last Admin: 08/28/18 09:49 Dose: 10 mg Clonidine HCl (Catapres) 0.2 mg PO DAILY [facility] Last Admin: 08/28/18 09:50 Dose: 0.2 mg Docusate Sodium (Colace) 100 mg PO DAILY [facility] Last Admin: 08/28/18 09:49 Dose: 100 mg Gabapentin (Neurontin) 300 mg PO Q8H [facility] Last Admin: 08/28/18 09:15 Dose: 300 mg Losartan Potassium (Cozaar) 50 mg PO DAILY [facility] Last Admin: 08/28/18 09:50 Dose: 50 mg Pantoprazole Sodium (Protonix Ec Tab) 20 mg PO DAILY [facility] Last Admin: 08/28/18 09:50 Dose: 20 mg Ranolazine (Ranexa) 500 mg PO DAILY [facility] Last Admin: 08/28/18 09:50 Dose: 500 mg Sevelamer Carbonate (Renvela) 800 mg PO TIDCC [facility] Last Admin: 08/28/18 09:00 Dose: 800 mg - Labs Labs: 08/28/18 07:34 08/28/18 07:34 PT 11.8 SECONDS (9.7-12.2) 08/26/18 21:31 INR 1.1 08/26/18 21:31 APTT 34 SECONDS (21-34) 08/26/18 21:31 - Constitutional Appears: Well, Non-toxic, Toxic, No Acute Distress - Head Exam Head Exam: ATRAUMATIC, NORMAL INSPECTION, NORMOCEPHALIC - Eye Exam Eye Exam: EOMI, Normal appearance, PERRL Pupil Exam: NORMAL ACCOMODATION - ENT Exam ENT Exam: Mucous Membranes Moist - Neck Exam Neck Exam: Full ROM - Respiratory Exam Respiratory Exam: Clear to Ausculation Bilateral, NORMAL BREATHING PATTERN - GI/Abdominal Exam GI & Abdominal Exam: Soft, Normal Bowel Sounds - Rectal Exam Rectal Exam: Deferred - Extremities Exam Additional comments: no edema of legs - Neurological Exam Neurological Exam: Alert, Awake, CN II-XII Intact, Normal Gait, Oriented x3 - Psychiatric Exam Psychiatric exam: Normal Affect, Normal Mood - Skin Skin Exam: Normal Color, Warm Assessment and Plan - Assessment and Plan (Free Text) Assessment: 57 yo male with htn, ckd-4, nephrotic range proteinuria, s/p NAHUM 1. NAHUM on CKD-4 2. HTN 3. Nephrotic range prtoteinuria r/o Ch. GN 4. s/p left kidney biopsy on 08/27/2018 5. s/p Left UE AV fistula placement with good bruit+ h/h is stable s.cr is stable, 5.1 today c/w current meds will d/c hctz, avoid heavy lifting, running or jumping for 1 week advised to take rest for 1 week will c/w renvela 800 mg po tid with food
--- NOTE | 2018-08-28 13:55 | US ---
PROCEDURE: Date of procedure: 08/27/2018 Procedure: Ultrasound-guided left renal biopsy, CPT 94791 Ultrasound guidance for biopsy, [id number] Medication: 8 cc 2% Lidocaine, patient received IV sedation by the anesthesiologist along with physiologic monitoring. HISTORY: Proteinuria, renal failure TECHNIQUE: Following informed consent and procedure time-out, the patient was placed prone on the interventional table and a limited ultrasound showed an echogenic left kidney consistent with medical renal disease. There is no hydronephrosis or mass. The patient left back was prepped and draped in the usual sterile fashion. After patient sedated by the anesthesiologist and the skin anesthetized with lidocaine, an 18 gauge core needle was advanced percutaneously towards the lower pole cortex. Upon confirmation of needle position, three-18 gauge core specimens were obtained and sent for routine pathology. The biopsy tract was then embolized with Gelfoam. A post biopsy ultrasound showed no hematoma. There were no immediate complications. IMPRESSION: Ultrasound-guided left renal biopsy.
== END 2018-08-28 13:29 | disposition home or self-care (01) | DRG 673 ==
LOC: C.ER 11:29 → C.9E 13:12 → C.5S 13:56
PROVIDERS: ADMIT Internal Medicine; ATTEND Internal Medicine
PROC: 03180ZD Bypass Left Brachial Artery to Upper Arm Vein, Open Approach (ICD-10-PCS; 2018-08-21)
PROC: 0TB13ZX Excision of Left Kidney, Percutaneous Approach, Diagnostic (ICD-10-PCS; principal; 2018-08-27)
DX: I12.0 Hypertensive chronic kidney disease with stage 5 chronic kidney disease or end stage renal disease (principal); N18.6 End stage renal disease; I20.1 Angina pectoris with documented spasm; Z86.79 Personal history of other diseases of the circulatory system; F17.210 Nicotine dependence, cigarettes, uncomplicated

== ENCOUNTER 2018-10-17 12:28 | Emergency (ER) | payer MEDICARE ==
[2018-10-17 12:28] VITALS: BMI 28.2
[2018-10-17 12:45] VITALS: BP 131/68; PULSE 88; RESP 20; TEMP 97.6; O2SAT 100
[2018-10-17 14:31] LABS: ALB/GLOB RATIO 1.4 (1.0-2.1); ALBUMIN 4.3 g/dL (3.5-5.0); CALCIUM 8.6 mg/dl (8.6-10.4)
--- NOTE | 2018-10-17 15:14 | C.PDOC ---
History Of Present Illness 58 year old male with a history of hypertension and renal failure, not yet started on dialysis, presents to the emergency department with complaints of itchiness and burning sensation to his skin yesterday. Patient admits to taking leftover Levaquin on Saturday and Saturday (3 and 2 days ago) for a toothache which has since resolved. Time Seen by Provider: 10/17/18 13:26 Chief Complaint (Nursing): Allergic Reaction History Per: Patient History/Exam Limitations: no limitations Onset/Duration Of Symptoms: Days (1) Current Symptoms Are (Timing): Still Present Quality Of Symptoms: Itching, Other (burning) Past Medical History Reviewed: Historical Data, Nursing Documentation, Vital Signs Vital Signs: Last Vital Signs Temp 97.6 F 10/17/18 12:40 Pulse 88 10/17/18 12:40 Resp 20 10/17/18 12:40 BP 131/68 10/17/18 12:40 Pulse Ox 100 10/17/18 12:40 - Medical History PMH: Fractures (left 5th toe), HTN, Peripheral Edema Denies: Chronic Kidney Disease Surgical History: No Surg Hx - [facility] Procedures BYPASS LEFT BRACHIAL ARTERY TO UPPER ARM VEIN, OPEN APPROACH (08/19/18) COLONOSCOPY (04/20/13) EXCISION OF LEFT KIDNEY, PERCUTANEOUS APPROACH, DIAGNOSTIC (08/19/18) Family History: States: No Known Family Hx - Social History Hx Tobacco Use: No Hx Alcohol Use: No Hx Substance Use: No - Immunization History Hx Tetanus Toxoid Vaccination: No Hx Influenza Vaccination: Yes Hx Pneumococcal Vaccination: Yes Review Of Systems Constitutional: Negative for: Fever, Chills Cardiovascular: Negative for: Chest Pain, Palpitations Respiratory: Negative for: Shortness of Breath Skin: Positive for: Other (itching, burning) Physical Exam - Physical Exam Appears: Non-toxic, No Acute Distress Skin: Warm, Dry, Other (mildly erythematous, no urticaria noted) Head: Atraumatic, Normacephalic Eye(s): bilateral: Normal Inspection, PERRL, EOMI Nose: Normal Oral Mucosa: Moist Tongue: Normal Appearing, No Swelling Lips: Normal Appearing, No Swelling Throat: Normal, No Erythema, No Exudate, No Other (uvular swelling) Neck: Normal, Supple Chest: Symmetrical, No Tenderness Cardiovascular: Rhythm Regular, No Murmur Respiratory: Normal Breath Sounds, No Rales, No Rhonchi, No Wheezing Extremity: Normal ROM Neurological/Psych: Oriented x3, Normal Speech, Normal Cognition ED Course And Treatment - Laboratory Results Result Diagrams: 10/17/18 13:53 O2 Sat by Pulse Oximetry: 100 (RA) Pulse Ox Interpretation: Normal - Physician Consult Information Time Consulting Physician Contacted: 15:15 Physician Contacted: Margarito Lopes Outcome Of Conversation: Requesting patient to be admitted. Medical Decision Making Medical Decision Making: Plan: CMP Benadryl 25mg PO Assessment: Allergic reaction to Levaquin vs. possible uremia. Benadryl 25mg PO and CMP to check for kidney function. 1629 discussed worsening renal function today compared to 08/[address] Norberto pendleton. recommends solumedrol ivpb and admission. pt refuses admission but will get dose iv medication. discussed again with Dr Norberto Lopes; pt to follow up with him and Dr Garcia next week and pt may continue to take benadryl. pt understands he is leaving [facility] and accepts consequences and risks of leaving, including worsening condition, or permanent disability. Disposition Counseled Patient/Family Regarding: Studies Performed, Diagnosis, Need For Followup, Rx Given - Disposition Referrals: Kezia Garcia MD [Staff Provider] - Margarito Lopes MD [Staff Provider] - Disposition: AGAINST MEDICAL ADVICE Disposition Time: 16:33 Condition: STABLE Additional Instructions: Take Benadryl one tablet every 8 hours for itching if needed. Do not take any more levaquin. Call for soonest appointments with both Dr Garcia and Dr Lopes. Return to ER for any worse symptoms, decreased urination, swelling to lips, tongue or face. Prescriptions: DiphenhydrAMINE [Benadryl] 25 mg PO Q8 #30 cap Instructions: Adverse Drug Reactions, Adult (DC) Forms: [facility] (Italian), General Discharge Instructions - Clinical Impression Clinical Impression: Allergic reaction caused by a drug, Worsening renal function - PA / CREATIVE ARTS THERAPIST / Resident Statement MD/DO has reviewed & agrees with the documentation as recorded. - Scribe Statement The provider has reviewed the documentation as recorded by the Scribe (Mauro Hunter) All medical record entries made by the Scribe were at my direction and personally dictated by me. I have reviewed the chart and agree that the record accurately reflects my personal performance of the history, physical exam, medical decision making, and the department course for this patient. I have also personally directed, reviewed, and agree with the discharge instructions and disposition.
[2018-10-17] MEDS ORDERED: MethylPREDNISolone 40 mg Vial IVP STA (15:21)
[2018-10-17] MEDS ORDERED: MethylPREDNISolone 40 mg Vial ONE (15:32)
== END 2018-10-17 16:40 | disposition left against medical advice (07) ==
LOC: C.ER 12:28
DX: L29.9 Pruritus, unspecified (principal); T36.8X5A Adverse effect of other systemic antibiotics, initial encounter; I10 Essential (primary) hypertension; N19 Unspecified kidney failure
CPT/HCPCS: 80053; 96374; 99283; J2920

== ENCOUNTER 2019-02-23 07:11 | Outpatient (CLI) | payer MEDICARE, OTHER | END 2019-02-23 07:12 | disposition home or self-care (01) | LOC: C.MRIC 07:12 | DX: M25.511 Pain in right shoulder (principal) ==